=== PATIENT | female | born 1940 | race Caucasian/White ===

== ENCOUNTER → 2016-06-26 | Outpatient (CLI) | payer BC ==
[~2016-06-26] MED LIST: AMLO2.5T PO; ASPEC81 PO; CALCTAB5 PO; CLRUNK; CYAN100020 PO; GLC500 PO; IMDSR30 PO; MOME50SP5; MULT-845 PO; NORT25CA PO; NTRGSL/4 UT; PRLSR20 PO; SIMV-150 PO; TPRSR50 PO; VTMD PO
[2016-06-26 08:59] LABS: ESTIMATED AVERAGE GLUCOSE 131 mg/dl; HA1C FLAG Normal (Normal)
== END ==
LOC: C.LABFOXMH 07:45
PROVIDERS: ATTEND Internal Medicine
DX: E11.9 Type 2 diabetes mellitus without complications (principal)

== ENCOUNTER → 2016-09-25 | Outpatient (CLI) | payer BC ==
--- NOTE | 2016-09-25 12:45 | MAMMOGRAPHY REPORT ---
BILATERAL DIGITAL SCREENING MAMMOGRAM WITH CAD: 09/25/2016 CLINICAL HISTORY: Routine screening. Patient has no complaints. TECHNIQUE: Current study was also evaluated with a Computer Aided Detection (CAD) system. Bilateral CC and MLO views were obtained. COMPARISON: Comparison is made to exams dated: 09/24/2015 mammogram, 09/20/2014 mammogram, 09/18/2013 andrew mogram, 08/10/2012 mammogram, 07/24/2011 mammogram, and 07/21/2010 mammogram - [facility] er. BREAST COMPOSITION: The tissue of both breasts is almost entirely fatty. FINDINGS: No suspicious masses, calcifications, or areas of architectural distortion are noted in ei ther breast. There has been no significant interval change compared to prior exams. IMPRESSION: ACR BI-RADS CATEGORY 1: NEGATIVE There is no mammographic evidence of malignancy. A 1 year screening mammogram is recommended. The pa tient will receive written notification of the results. Approximately 10% of breast cancers are not detected with mammography. A negative mammographic report should not delay biopsy if a clinically suggestive mass is present. Sonia Boyce M.D. ah/:09/25/2016 10:22:15 Weight Tester: Farida Beltran RT(R)(M), [facility] letter sent: Normal 1/2 BI-RADS Code: ACR BI-RADS Category 1: Negative
== END ==
LOC: C.MAMM 09:21
PROVIDERS: ATTEND Internal Medicine
DX: Z12.31 Encounter for screening mammogram for malignant neoplasm of breast (principal)

== ENCOUNTER → 2016-10-28 | Outpatient (CLI) | payer BC ==
[2016-10-28 08:53] LABS: ALT/SGPT 21 U/L (12-78); AST/SGOT 18 U/L (15-37); BLOOD UREA NITROGEN 19 mg/dl (7-18); BUN/CREATININE RATIO 15.5 (10-20); CALCIUM 8.7 mg/dl (8.5-10.1); CARBON DIOXIDE 32 mmol/L (21-32); CHLORIDE 106 mmol/L (98-107); CHOLESTEROL 199 mg/dl (0-200); GLUCOSE 103 mg/dl (70-99); POTASSIUM 4.1 mmol/L (3.5-5.1); SODIUM 141 mmol/L (136-145); TRIGLYCERIDES 127 mg/dl (0-150); VERY LOW DENSITY LIPOPROT CALC 25 mg/dl
[2016-10-28 08:54] LABS: ALKALINE PHOSPHATASE 73 U/L (45-117); HDL CHOLESTEROL 66 mg/dl; LDL CHOLESTEROL CALCULATED 108 mg/dl
[2016-10-28 09:27] LABS: ESTIMATED AVERAGE GLUCOSE 137 mg/dl; HA1C FLAG Normal (Normal)
== END | disposition home or self-care (01) ==
LOC: C.LABFOXMH 08:22
PROVIDERS: ATTEND Internal Medicine
DX: E11.9 Type 2 diabetes mellitus without complications (principal)

== ENCOUNTER → 2016-12-14 | Outpatient (CLI) | payer BC ==
--- NOTE | 2016-12-14 09:59 | DIAGNOSTIC IMAGING REPORT ---
LUMBAR SPINE 5 VIEWS HISTORY: Low back PAIN COMPARISON: Lumbar spine 12/31/2011. FINDINGS: There is no fracture. No subluxation. Mild S-shaped scoliosis of the thoracolumbar spine, unchanged. Cholecystectomy. Mild facet osteoarthritis throughout the lumbar spine. There are few small endplate osteophytes within the lumbar spine. Minimal disc space narrowing at L3-L4, L4-5, and L5-S1. IMPRESSION: 1. No fracture or subluxation within the lumbar spine. 2. Minimal/mild degenerative changes as described above. 3. Mild S-shaped scoliosis. Electronically signed by: Diego Mcleod M.D. 12/14/2016 9:57 AM Dictated Date/Time: 12/14/2016 9:54 AM
== END | disposition home or self-care (01) ==
LOC: C.RADBC 09:13
PROVIDERS: ATTEND Internal Medicine
DX: M54.5 Low back pain (principal)

== ENCOUNTER → 2017-03-25 | Outpatient (CLI) | payer BC ==
[2017-03-25 08:58] LABS: HEMOGLOBIN A1C 6.6 % (4.5-5.6)
== END | disposition home or self-care (01) ==
LOC: C.LABFOXMH 08:06
PROVIDERS: ATTEND Internal Medicine
DX: E11.9 Type 2 diabetes mellitus without complications (principal)

== ENCOUNTER → 2017-04-02 | Outpatient (CLI) | payer BC ==
[2017-04-02 08:52] LABS: HEMATOCRIT 41.7 % (37-47); HEMOGLOBIN 13.4 g/dL (12.0-16.0); MEAN CELL VOLUME 84.9 fL (80-100); MEAN CORPUSCULAR HEMOGLOBIN 27.3 pg (25-34); MEAN CORPUSCULAR HGB CONC 32.1 g/dl (32-36); MEAN PLATELET VOLUME 10.4 fL (7.4-10.4); PLATELET COUNT 276 K/uL (130-400); RED CELL DISTRIBUTION WIDTH CV 13.8 % (11.5-14.5); RED CELL DISTRIBUTION WIDTH SD 42.7 fL (36.4-46.3); WHITE BLOOD COUNT 5.82 K/uL (4.8-10.8)
[2017-04-02 09:03] LABS: ALBUMIN 3.6 gm/dl (3.4-5.0); ALT/SGPT 23 U/L (12-78); AST/SGOT 18 U/L (15-37); BLOOD UREA NITROGEN 17 mg/dl (7-18); CALCIUM 9.4 mg/dl (8.5-10.1); CARBON DIOXIDE 29 mmol/L (21-32); CREATININE 1.16 mg/dl (0.60-1.20); GLUCOSE 113 mg/dl (70-99); POTASSIUM 4.1 mmol/L (3.5-5.1); SODIUM 140 mmol/L (136-145)
[2017-04-02 09:13] LABS: ALKALINE PHOSPHATASE 70 U/L (45-117)
== END | disposition home or self-care (01) ==
LOC: C.LABFOXMH 08:25
PROVIDERS: ATTEND Internal Medicine
DX: R41.2 Retrograde amnesia (principal)

== ENCOUNTER → 2017-04-08 | Outpatient (CLI) | payer BC ==
[~2017-04-08] MED LIST changes: +GADAVIST IV PRN
--- NOTE | 2017-04-08 15:06 | DIAGNOSTIC IMAGING REPORT ---
BRAIN COMBO CLINICAL HISTORY: MEMORY LOSS, MENGIONOMA,PARTIAL EXPRESSIVE APHAGIA COMPARISON STUDY: 02/23/2013 TECHNIQUE: Utilizing a 1.5 Calista magnet and dedicated coil, multiplanar, multiecho imaging of the brain was performed pre and postcontrast administration. IV administration of 8.5 mL of Gadavist contrast was uneventful. FINDINGS: Findings consistent with somewhat progressive atrophy and chronic small vessel change compared to the prior exam. Diffusion-weighted images are negative for an acute ischemic event. Multiple intracranial meningiomas are moderately increased in size. The posterior interhemispheric enhancing nodule has increased from 1.9 x 1 0.2-2 0.3 x 1.7 cm. An additional meningioma the base of the right temporal fossa has increased from 6 to 12 mm. A meningioma adjacent to the cavernous sinus appears to be similar at 12 mm. All meningioma showed minimal localized mass effect with only a trace amount of reactive edema. There is no midline shift. IMPRESSION: 1. Mildly progressive atrophy and chronic small vessel change throughout both cerebral hemispheres. 2. No evidence for an acute ischemic insult. 3. Multifocal intracranial meningiomas in general moderately increased in volume from the prior study. The above report was generated using voice recognition software. It may contain grammatical, syntax or spelling errors. Electronically signed by: Romel Patton M.D. 04/08/2017 3:05 PM Dictated Date/Time: 04/08/2017 3:00 PM
== END | disposition home or self-care (01) ==
LOC: C.MRI 13:25
PROVIDERS: ATTEND Internal Medicine
DX: R41.3 Other amnesia (principal); D32.9 Benign neoplasm of meninges, unspecified; F80.1 Expressive language disorder

== ENCOUNTER → 2017-05-27 | Outpatient (CLI) | payer BC ==
[~2017-05-27] MED LIST changes: -GADAVIST IV PRN
--- NOTE | 2017-05-27 09:16 | DIAGNOSTIC IMAGING REPORT ---
R HIP UNILATERAL 2 VIEWS CLINICAL HISTORY: PAIN COMPARISON: None. DISCUSSION: Minimal joint space narrowing of the right hip. No evidence for acetabular protrusion. No abnormal soft tissue calcifications. There is no evidence for soft tissue swelling. IMPRESSION: Minimal degenerative narrowing right hip joint space. Otherwise negative study. The above report was generated using voice recognition software. It may contain grammatical, syntax or spelling errors. Electronically signed by: Romel Patton M.D. 05/27/2017 9:14 AM Dictated Date/Time: 05/27/2017 9:13 AM
== END | disposition home or self-care (01) ==
LOC: C.RADBC 08:56
PROVIDERS: ATTEND Internal Medicine
DX: M25.551 Pain in right hip (principal)

== ENCOUNTER → 2017-06-22 | Outpatient (CLI) | payer BC ==
[2017-06-22 08:20] LABS: CREATININE 1.24 mg/dl (0.60-1.20)
== END | disposition home or self-care (01) ==
LOC: C.LABFOXMH 07:57
PROVIDERS: ATTEND Radiology Radiation Oncology
DX: D32.0 Benign neoplasm of cerebral meninges (principal)

== ENCOUNTER → 2017-10-01 | Outpatient (CLI) | payer BC ==
--- NOTE | 2017-10-04 07:44 | MAMMOGRAPHY REPORT ---
BILATERAL DIGITAL SCREENING MAMMOGRAM TOMOSYNTHESIS WITH CAD: 10/01/2017 CLINICAL HISTORY: Routine screening. Patient has no complaints. TECHNIQUE: The study was acquired using full field digital technology and interpreted from soft copy. Breast tomosynthesis in addition to standard 2D mammography was performed. Current study was also ev aluated with a Computer Aided Detection (CAD) system. COMPARISON: Comparison is made to exams dated: 09/25/2016 mammogram, 09/24/2015 mammogram, 09/20/2014 ma mmogram, 08/10/2012 mammogram, 07/24/2011 mammogram, and 07/18/2009 mammogram - [facility]. BREAST COMPOSITION: The tissue of both breasts is almost entirely fatty. FINDINGS: No suspicious masses, calcifications, or areas of architectural distortion are noted in either breast . There has been no significant interval change compared to prior exams. IMPRESSION: ACR BI-RADS CATEGORY 1: NEGATIVE There is no mammographic evidence of malignancy. A 1 year screening mammogram is recommended.( 019) The patient will receive written notification of the results. Some breast cancers are not detected with mammography. A negative mammographic report should not philomena y biopsy if a clinically suggestive mass is present. Sonia Boyce M.D. ah/:10/01/2017 12:41:20 Enchilada Maker: Arin Garcia [facility] letter sent: Normal 1/2 BI-RADS Code: ACR BI-RADS Category 1: Negative
== END | disposition home or self-care (01) ==
LOC: C.MAMM 09:28
PROVIDERS: ATTEND Internal Medicine
DX: Z12.31 Encounter for screening mammogram for malignant neoplasm of breast (principal)

== ENCOUNTER 2019-01-27 16:47 | Observation (INO) ==
[2019-01-27 17:28] LABS: Basophils # (auto) 0.01 K/uL (0-0.2); Basophils % (auto) 0.1 %; Eosinophils # (auto) 0.13 K/uL (0-0.5); Eosinophils % (auto) 1.9 %; Hemoglobin 13.2 g/dL (12.0-16.0); Immature Granulocytes # (auto) 0.01 K/uL (0.00-0.02); Immature Granulocytes % (auto) 0.1 %; Lymphocytes # (auto) 1.07 K/uL (1.2-3.4); Lymphocytes % (auto) 15.6 %; Mean Corpuscular Hemoglobin 27.6 pg (25-34); Mean Corpuscular Hgb Conc 33.8 g/dL (32-36); Mean Corpuscular Volume 81.4 fL (80-100); Mean Platelet Volume 9.8 fL (7.4-10.4); Monocytes # (auto) 0.73 K/uL (0.11-0.59); Monocytes % (auto) 10.6 %; Neutrophils # (auto) 4.93 K/uL (1.4-6.5); Neutrophils % (auto) 71.7 %; Platelet Count 244 K/uL (130-400); RDW Coefficient of Variation 14.3 % (11.5-14.5); RDW Standard Deviation 42.8 fL (36.4-46.3); Red Blood Count 4.79 M/uL (4.2-5.4); White Blood Count 6.88 K/uL (4.8-10.8)
[2019-01-27] MEDS ORDERED: NITROGLYCERIN 2% OINTMENT 30GM TUBE EXT STA (17:42)
[2019-01-27 17:44] LABS: Albumin Level 3.6 gm/dl (3.4-5.0); BUN Creatinine Ratio 12.9 (10-20); Calcium 8.8 mg/dl (8.5-10.1); Creatinine Clr Calc Pharmacy 35.5 ml/min; Est GFR (African American) 57.4; Est GFR (Non-African American) 49.6; Potassium 3.1 mmol/L (3.5-5.1)
--- NOTE | 2019-01-27 17:46 | XRay Report ---
XR chest 1V portable CLINICAL HISTORY: Atypical chest pain COMPARISON STUDY: 03/14/2018 FINDINGS: The cardiac and mediastinal contours are normal. There is no evidence of focal pulmonary co nsolidation. There is no evidence of failure. No pleural effusions are visualized.[ IMPRESSION: No active disease in the chest. Electronically signed by: Harjeet Duran M.D. 01/27/2019 5:45 PM
[2019-01-27 17:48] LABS: Albumin Globulin Ratio 1.1 (0.9-2); Bilirubin,Total 0.4 mg/dl (0.2-1); Globulin 3.3 gm/dl (2.5-4.0); Total Protein 6.9 gm/dl (6.4-8.2); Troponin I 0.037 ng/ml (0-0.045)
[2019-01-27] MEDS ORDERED: POTASSIUM CHLORIDE 20 MEQ TABCR PO STA ×2 (18:40→20:20)
--- NOTE | 2019-01-27 20:40 | Emergency Department Note ---
Entered by Pa Mcintyre acting as a scribe for ED Provider Note CHIEF COMPLAINT: Chest pain HISTORY OF PRESENT ILLNESS: The patient is a 78 year old female who presents to the ED with a chief complaint of central chest pain that began at 1330, approximately 3 hours prior to arrival. The patient describes her pain as a pressure and denies radiation of this pain. She states that when the pain began it was rated at a 10/10, but states that it is currently 3/10. The patient reports feeling lightheaded at this time, but denies nausea, vomiting, shortness of breath, and sweating. The patient states that this is similar to a prior episode. She states that she took Nitro prior to EMS arrival, and states that this relieved her symptoms. The patient states that she had a colonoscopy just prior to her chest pain beginning. Pt denies LOC, headache, fevers, chills, diaphoresis, visual changes, neck pain, breathing difficulties, nausea, vomiting, abdominal pain, back pain, melena, hematochezia, urinary symptoms, numbness, weakness, lymphadenopathy, rash, or other complaints. REVIEW OF SYSTEMS: See HPI for pertinent positives and negatives. A total of ten systems were reviewed and were otherwise negative. PMHx/PSHx: CAD Diabetes HTN GERD HLD SOCIAL HISTORY: Patient lives at home. PHYSICAL EXAM: GENERAL: Awake, alert, well-appearing, in no distress HENT: Normocephalic, atraumatic. Flushed face. Oropharynx unremarkable. EYES: Normal conjunctiva. Sclera non-icteric. NECK: Inspection normal. Non-tender. Supple. No nuchal rigidity. FROM. No masses. RESPIRATORY: Clear to auscultation. No wheezes. No rales. Normal respiratory effort. CARDIAC: Tachycardic rate. Normal rhythm. No murmurs. No rubs. Extremities warm and well perfused. Pulses equal. No JVD. GI: Soft, non-distended. No tenderness to palpation. No rebound or guarding. No masses. RECTAL: Deferred. MUSCULOSKELETAL: Atraumatic. Chest examination reveals no tenderness. The back is symmetrical on inspection without obvious abnormality. There is no CVA tenderness to palpation. No joint edema. LOWER EXTREMITIES: Calves are equal size bilaterally and non-tender. No edema. No discoloration. NEURO: Normal sensorium. No sensory or motor deficits noted. SKIN: No rash or jaundice noted. EMERGENCY DEPARTMENT COURSE: 1650: The patient was evaluated in room B7, and a complete history and physical examination were performed. 1912: I checked on and updated the patient. I expressed the need for further evaluation because of her cardiac history and chest pain today that was relieved by Nitro. The patient is in agreement with this plan. 1921: [facility] Hospitalist has been paged for further evaluation of the patient. MEDICAL DECISION MAKING: Triage Nursing notes reviewed and agree them. Additional history obtained from EMS. The patient's history was concerning for chest pain. Differential diagnosis: Etiologies such as cardiac ischemia, aortic dissection, pulmonary embolism, pneumonia, pneumothorax, musculoskeletal, infections, pericarditis, myocarditis, esophageal rupture, gastrointestinal, as well as others were entertained. Physical examination: As above. ER treatment provided: Nitropaste Monitoring Patient received aspirin prehospital. On reassessment the patient felt better. Diagnostic interpretation by me: The electrocardiogram was negative for pathologic change. The labs revealed an unremarkable CBC and chemistry panel except for slight hypokalemia. The patient does have a normal troponin. Imaging studies: Chest x-ray negative for acute process. Consultation: A consultation was placed with the hospitalist. The case was discussed and diagnostics were reviewed. The patient was evaluated in the ER for further treatment. IMPRESSION: Substernal chest pain History of coronary artery disease PLAN: Further evaluated by hospitalist Impression & Plan Substernal chest pain, History of coronary artery disease Past Med/Surg History Medical History Anxiety CAD (coronary artery disease) Degenerative disc disease Diabetes mellitus, type 2 DIET CONTROLLED Environmental allergies Esophageal spasm GERD (gastroesophageal reflux disease) History of depression Hyperlipidemia Hypertension (Chronic) Osteoarthritis Peripheral neuropathy LEFT FOOT Urinary frequency Surgical History H/O foot surgery LEFT History of cardiac cath 2003 (NO STENTS) History of cataract surgery RT/LEFT History of cholecystectomy History of colonoscopy History of esophagogastroduodenoscopy (EGD) History of nasal septoplasty History of tonsillectomy and adenoidectomy History of tooth extraction Family History Mother Atrial fibrillation Colon cancer Other Heart disease Stroke Social History Preferred Language: Armenian Communication Ability: Effective Etl [employer] Architect Required: No Beliefs That Will Affect Care: None marital status: single Current Living Situation: Alone Current Living Situation Comment: [facility] current occupational status: retired Feels Safe at Home: Yes Smoking Status: Former smoker Tobacco Type: cigarettes ; Second Hand Exposure: No ; Hx Alcohol Use: Yes Alcohol type: beer, wine and hard liquor Hx Substance Use: No Results & Data Vital Signs Vital Signs - 24 hr 01/27/19 16:47 01/27/19 17:35 01/27/19 17:42 Temperature 36.6 C Temperature Source Oral Pulse Rate 108 H Pulse Rate [Apical] 95 H Pulse Rate from SpO2 Sensor Pulse Rhythm Regular Pulse Strength Normal Respiratory Rate 16 17 Respiratory Effort / Characteristics Non-Labored Spontaneous Respiratory Depth Normal Respiratory Pattern Regular Blood Pressure 157/77 H Blood Pressure [Right Arm] 184/94 H Blood Pressure Mean 103 Blood Pressure Mean [Right Arm] 124 Blood Pressure Position Sitting Pulse Oximetry 100 100 100 Oxygen Delivery Method Room Air Room Air Room Air Sepsis Recent Fever Within 48 Hours No Sepsis New/Unexplained Change in Mental Status No Sepsis Action Taken by Nursing No Action Required 01/27/19 18:18 01/27/19 18:30 01/27/19 19:00 Temperature Temperature Source Pulse Rate 97 H 97 H Pulse Rate [Apical] 100 H Pulse Rate from SpO2 Sensor 98 H 99 H Pulse Rhythm Pulse Strength Respiratory Rate 14 19 16 Respiratory Effort / Characteristics Respiratory Depth Respiratory Pattern Blood Pressure 180/97 H 154/90 H Blood Pressure [Right Arm] 170/82 H Blood Pressure Mean 124 117 Blood Pressure Mean [Right Arm] 111 Blood Pressure Position Pulse Oximetry 98 99 98 Oxygen Delivery Method Room Air Room Air Room Air Sepsis Recent Fever Within 48 Hours Sepsis New/Unexplained Change in Mental Status Sepsis Action Taken by Nursing 01/27/19 19:29 Temperature Temperature Source Pulse Rate Pulse Rate [Apical] 104 H Pulse Rate from SpO2 Sensor Pulse Rhythm Pulse Strength Respiratory Rate 20 Respiratory Effort / Characteristics Respiratory Depth Respiratory Pattern Blood Pressure Blood Pressure [Right Arm] 160/83 H Blood Pressure Mean Blood Pressure Mean [Right Arm] 108 Blood Pressure Position Pulse Oximetry 97 Oxygen Delivery Method Sepsis Recent Fever Within 48 Hours Sepsis New/Unexplained Change in Mental Status Sepsis Action Taken by [facility] Medications Current Medication List: was personally reviewed by me Laboratory Data Attestation: I reviewed the patient's lab results. Result diagrams: 01/27/19 17:00 01/27/19 17:00 Lab Results 01/27/19 01/27/19 Range/Units 17:00 17:00 WBC 6.88 (4.8-10.8) K/uL RBC 4.79 (4.2-5.4) M/uL Hgb 13.2 (12.0-16.0) g/dL Hct 39.0 (37-47) % MCV 81.4 (80-100) fL MCH 27.6 (25-34) pg MCHC 33.8 (32-36) g/dL RDW Std Deviation 42.8 (36.4-46.3) fL RDW Coeff of Abrahan 14.3 (11.5-14.5) % Plt Count 244 (130-400) K/uL MPV 9.8 (7.4-10.4) fL Immature Gran % (Auto) 0.1 % Neut % (Auto) 71.7 % Lymph % (Auto) 15.6 % [place] % (Auto) 10.6 % Eos % (Auto) 1.9 % Baso % (Auto) 0.1 % Immature Gran # (Auto) 0.01 (0.00-0.02) K/uL Neut # (Auto) 4.93 (1.4-6.5) K/uL Lymph # (Auto) 1.07 L (1.2-3.4) K/uL [place] # (Auto) 0.73 H (0.11-0.59) K/uL Eos # (Auto) 0.13 (0-0.5) K/uL Baso # (Auto) 0.01 (0-0.2) K/uL Sodium 138 (136-145) mmol/L Potassium 3.1 L (3.5-5.1) mmol/L Chloride 105 (98-107) mmol/L Carbon Dioxide 25 (21-32) mmol/L Anion Gap 8.0 (3-11) BUN 14 (7-18) mg/dl Creatinine 1.06 (0.6-1.2) mg/dl Est Cr Clr Drug Dosing 35.5 ml/min Est GFR ( Amer) 57.4 Est GFR (Non-Af Amer) 49.6 BUN/Creatinine Ratio 12.9 (10-20) Glucose 145 H (70-99) mg/dl Calcium 8.8 (8.5-10.1) mg/dl Total Bilirubin 0.4 (0.2-1) mg/dl AST 17 (15-37) U/L ALT 21 (12-78) U/L Alkaline Phosphatase 74 (45-117) U/L Troponin I 0.037 (0-0.045) ng/ml Total Protein 6.9 (6.4-8.2) gm/dl Albumin 3.6 (3.4-5.0) gm/dl Globulin 3.3 (2.5-4.0) gm/dl Albumin/Globulin Ratio 1.1 (0.9-2) Lipase 120 (73-393) U/L Administered Medications Discontinued Medications Nitroglycerin (Nitro-Bid 2%) 0.5 inch EXT NOW STA Stop: 01/27/19 17:43 Last Admin: 01/27/19 18:15 Dose: 0.5 inch Documented by: [id number] Potassium Chloride (Klor-Con M20) 20 meq PO NOW STA Stop: 01/27/19 18:41 Last Admin: 01/27/19 19:28 Dose: 20 meq Documented by: [id number] Potassium Chloride (Klor-Con M20) 40 meq PO NOW STA Stop: 01/27/19 20:21 Last Admin: 01/27/19 20:30 Dose: 40 meq Documented by: [id number] Imaging Data Radiologist's Impression: Radiology results as stated below per my review and the radiologist's interpretation: XR chest 1V portable CLINICAL HISTORY: Atypical chest pain COMPARISON STUDY: 03/14/2018 FINDINGS: The cardiac and mediastinal contours are normal. There is no evidence of focal pulmonary consolidation. There is no evidence of failure. No pleural effusions are visualized. IMPRESSION: No active disease in the chest. Electronically signed by: Harjeet Duran M.D. 01/27/2019 5:45 PM ECG Data Attestation: I personally reviewed and interpreted this ECG as follows: Indication: + chest pain Rate (beats per minute): 109 Rhythm: sinus tachycardia ECG [place]: + Left axis deviation ECG ST segments: + ST depression (subtle lateral); no ST elevation ECG Findings: + Other (LVH; nonspecific ST segments); no PACs and no PVCs Comparison ECG Date: from (03/14/18) Change: the following changes noted (subtle lateral ST depressions are new) Additional Comments: pre-hospital ECG: Sinus tachycardia with a rate of 112. LVH. Left axis deviation. Subtle lateral ST depression. Normal QRS. Blood Pressure Blood Pressure Findings: Elevated blood pressure Blood Pressure Disposition: further management by hospitalist Discharge Plan Visit Data Chief Complaint: Chest Pain Stated Complaint: CHEST TIGHTNESS ED Provider: Ned Johnson Discharge Problem: Substernal chest pain, History of coronary artery disease Patient Disposition: Being Evaluated by Hospitalist Forms Stand Alone Forms: Call Back Authorization, [facility] Prescriptions Prescriptions: No Action nitroglycerin [Nitrostat] 0.4 mg tablet, sublingual 0.4 mg Sublingual DIRECTED PRN (Reason: Chest Pain) Qty: 25 RF: 3 nortriptyline 25 mg capsule 25 mg PO QPM RF: 0 simvastatin 10 mg tablet 10 mg PO DAILY RF: 0 isosorbide mononitrate 30 mg tablet extended release 24 hr 30 mg PO DAILY RF: 0 metoprolol succinate [Toprol XL] 50 mg tablet extended release 24 hr 75 mg PO QAM RF: 0 tolterodine 2 mg tablet 2 mg PO BID Qty: 180 RF: 3 aspirin 81 mg Tablet,Delayed Release (Dr/Ec) 81 mg PO DAILY RF: 0 fluticasone propionate [Flonase Allergy Relief] 50 mcg/actuation [place],Suspension 2 spray INTRANASAL DAILY RF: 0 cholecalciferol (vitamin D3) [Vitamin D3] 2,000 unit Tablet 2,000 unit PO DAILY RF: 0 Zyrtec 10 mg Capsule 10 mg PO DAILY RF: 0 cyanocobalamin (vitamin B-12) 1,000 mcg Tablet 1,000 mcg PO DAILY RF: 0 pantoprazole 40 mg Tablet,Delayed Release (Dr/Ec) 40 mg PO BID RF: 0 montelukast 10 mg Tablet 10 mg PO DAILY RF: 0 candesartan 16 mg tablet 16 mg PO DAILY RF: 0 Referrals Referrals: Smooth Doan MD [Primary Care Provider] - The scribe's documentation has been prepared under my direction and personally reviewed by me in its entirety. I confirm that the note above accurately reflects all work, treatment, procedures, and medical decision making performed by me.
--- NOTE | 2019-01-27 21:35 | History & Physical Report ---
Date of Service January 27, 2019 Assessment & Plan (1) Substernal chest pain: 78-year-old female with history of type vessel occlusive coronary artery disease, arterial hypertension, DM 2, lipidemia, GERD anxiety, depression presents status post chest pain this afternoon after her colonoscopy Chest pain Concerning for possible MA versus unstable angina versus arrhythmia EK sinus tach QTC [address] depression lateral leads no ST elevation Troponin 0.037 Cardiac cath in 2010: Multivessel occlusive coronary artery disease, arterial hypertension Trend troponin Repeat EKG ordered Echo ordered Monitor on telemetry Cardiology consulted History of hypertension/hyperlipidemia/coronary artery disease Continue home aspirin, candesartan, isosorbide mononitrate, metoprolol and simvastatin History of diabetes Managed dietary A1c 6.9 on 11/29/2018 Sliding scale insulin ordered GERD Continue home pantoprazole Urinary frequency Tinea home tolterodine Allergies Continue home Zyrtec and montelukast FEN/GI: Heart healthy diet, LR at 100+ KCl 20 mEq Code: Full Disposition: MedSurg with telemetry DVT prophylaxis: Heparin subcu (2) History of coronary artery disease: (3) Diabetes: (4) Hypertension: (5) HLD (hyperlipidemia): (6) GERD (gastroesophageal reflux disease): History of Present Illness Chief Complaint: Chest pain Primary Care Provider: Smooth Doan MD 78-year-old female with history of type vessel occlusive coronary artery disease, arterial hypertension, DM 2, lipidemia, GERD anxiety, depression presents status post chest pain this afternoon after her colonoscopy. Reports she put on her pajamas and wanted to take a nap when the chest tightness started. She also felt some flutters. At the time her blood pressure was elevated and she was also tachycardic. Associated with mild shortness of breath and lightheadedness after the episode. Denies any diaphoresis, nausea, vo miting. Chest pain went away after she received Nitropaste. Received 3 nitros in route and aspirin 324 mg x 1. Denies any fever, chills, abdominal pain, constipation, dysuria, hematuria. Patient reports taking 2 nitros before going up the hill at her living facility, [facility] however after she received PT she feels stronger and can go up and down the hill without needing to take any nitro. History of smoking for 2 to 3 years less than half a pack per day quit 50 years ago. Drinks alcohol about once a month 1 ounce of liquor or couple glasses of wine Allergies Allergy/AdvReac Type Severity Reaction Status Date / Time Sulfa (Sulfonamide Allergy Intermediate RASH, RED Verified 01/27/19 20:12 Antibiotics) ALL OVER BODY lisinopril Allergy Mild Cough Verified 01/27/19 20:12 Home Medications Home Medications Medication Instructions Recorded Confirmed Type Zyrtec 10 mg PO DAILY 03/14/18 01/27/19 History aspirin 81 mg PO DAILY 03/14/18 01/27/19 History cholecalciferol (vitamin D3) 2,000 unit PO DAILY 03/14/18 01/27/19 History [Vitamin D3] fluticasone propionate [Flonase 2 spray INTRANASAL DAILY 03/14/18 01/27/19 History Allergy Relief] isosorbide mononitrate 30 mg 30 mg PO DAILY 09/26/18 01/27/19 History tablet,extended release 24 hr metoprolol succinate 50 mg 75 mg PO QAM 09/26/18 01/27/19 History tablet,extended release 24 hr nortriptyline 25 mg capsule 25 mg PO QPM 09/26/18 01/27/19 History simvastatin 10 mg tablet 10 mg PO DAILY 09/26/18 01/27/19 History tolterodine 2 mg tablet 2 mg PO BID #180 tab 10/13/18 01/27/19 Rx nitroglycerin 0.4 mg sublingual 0.4 mg SUBLINGUAL DIRECTED PRN 11/23/18 01/27/19 Rx tablet #25 tab cyanocobalamin (vitamin B-12) 1,000 mcg PO DAILY 01/18/19 01/27/19 History montelukast 10 mg PO DAILY 01/18/19 01/27/19 History pantoprazole 40 mg PO BID 01/18/19 01/27/19 History candesartan 16 mg PO DAILY 01/27/19 01/27/19 History Past Med/Surg History Medical History Anxiety CAD (coronary artery disease) Degenerative disc disease Diabetes mellitus, type 2 DIET CONTROLLED Environmental allergies Esophageal spasm GERD (gastroesophageal reflux disease) History of depression Hyperlipidemia Hypertension (Chronic) Osteoarthritis Peripheral neuropathy LEFT FOOT Urinary frequency Surgical History H/O foot surgery LEFT History of cardiac cath 2003 (NO STENTS) History of cataract surgery RT/LEFT History of cholecystectomy History of colonoscopy History of esophagogastroduodenoscopy (EGD) History of nasal septoplasty History of tonsillectomy and adenoidectomy History of tooth extraction Family History Mother Atrial fibrillation Colon cancer Other Heart disease Stroke Social History Preferred Language: Arabic Communication Ability: Effective Coarse Wire Drawer Required: No Beliefs That Will Affect Care: None marital status: single Current Living Situation: Personal Care Facility Current Living Situation Comment: [facility] current occupational status: retired Other Information That Helps Us Care for You: No Feels Safe at Home: Yes Safety Concerns: Feels Safe At This Time Smoking Status: Former smoker Tobacco Type: cigarettes ; Second Hand Exposure: No ; Hx Alcohol Use: Yes Alcohol type: wine and hard liquor Hx Substance Use: No Review of Systems Review of Systems: As per HPI Physical Exam Physical Exam: General: In NAD HEENT: dry oral mucosa Neuro: A&O x 4 Pulm: CTAB equal breath sounds bilaterally CV: RRR, no m/r/g, cap refill 2 secs Abdomen:+BS, no TTP in all quadrants, non-distended LE: no LE edema, no calf TTP Results & Data Vital Signs (Past 12 Hours) Vital Signs Temp Pulse Pulse Resp BP BP Pulse Ox 01/27/19 21:20 105 H 18 139/79 97 01/27/19 19:29 104 H 20 160/83 H 97 01/27/19 19:00 97 H 16 154/90 H 98 01/27/19 18:30 97 H 19 180/97 H 99 01/27/19 18:18 100 H 14 170/82 H 98 01/27/19 17:42 95 H 17 184/94 H 100 01/27/19 17:35 100 01/27/19 16:47 36.6 C 108 H 16 157/77 H 100 Laboratory Results Abnormal lab results 01/27/19 01/27/19 Range/Units 17:00 17:00 Lymph # (Auto) 1.07 L (1.2-3.4) K/uL Tyrrell # (Auto) 0.73 H (0.11-0.59) K/uL Potassium 3.1 L (3.5-5.1) mmol/L Glucose 145 H (70-99) mg/dl Diagnostic Findings XR chest 1V portable CLINICAL HISTORY: Atypical chest pain COMPARISON STUDY: 03/14/2018 FINDINGS: The cardiac and mediastinal contours are normal. There is no evidence of focal pulmonary consolidation. There is no evidence of failure. No pleural effusions are visualized.[ IMPRESSION: No active disease in the chest. Code Status & VTE Plan VTE Prophylaxis Plan VTE Prophylaxis will be ordered: Yes Supervising Physician Co-Signing Physician Notes Attending addendum: I have physically seen this patient, have supervised the medical residents activities, and agree with the H&P unless as otherwise noted. Assessment and Plan: Substernal chest pain/CAD/hypertension/hyperlipidemia- The patient will be admitted to telemetry for serial cardiac enzymes, serial EKG's, cardiac rhythm monitoring and a 2-D echocardiogram with Dopplers. Continue aspirin, candesartan, isosorbide mononitrate, metoprolol and simvastatin. Check a fasting lipid panel and hemoglobin A1c. Consult cardiology. Remainder of orders and notations as noted. Resident Activity Tracking Resident Involvement: Resident Care Provided Care Provided: Adult [facility]
[2019-01-27] MEDS ORDERED: ONDANSETRON INJ 2 MG/ML 2 ML VIAL IV PRN (23:04)
[2019-01-27] MEDS ORDERED: NITROGLYCERIN SL 0.4 MG/TAB TAB SL PRN (23:04)
[2019-01-27] MEDS ORDERED: ACETAMINOPHEN 325 MG TAB PO PRN (23:04)
[2019-01-27] MEDS: NSS + 20MEQ KCL 20 MEQ/1,000 ML BAG IV SCH (23:34)
[2019-01-27] MEDS: PANTOprazole 40 MG TAB PO SCH (23:41)
[2019-01-27] MEDS: TOLTERODINE TARTRATE 2 MG TAB PO SCH (23:41)
[2019-01-27] MEDS ORDERED: GLUCOSE 10 TABS/TUBE PO PRN (23:45)
[2019-01-27] MEDS ORDERED: DEXTROSE 50% 50 ML SYRINGE IV PRN (23:45)
[2019-01-27] MEDS ORDERED: GLUCOSE 40% GEL 15 GM TUBE PO PRN (23:45)
[2019-01-27] MEDS ORDERED: CARBOHYDRATES FOR HYPOGLYCEMIA PO PRN (23:45)
[2019-01-27] MEDS ORDERED: GLUCAGON FOR INJ 1 MG VIAL SQ PRN (23:45)
[2019-01-28] MEDS ORDERED: HEPARIN SODIUM/DEXTROSE 25,000 UNITS/500 ML BAG IV SCH (01:30)
[2019-01-28] MEDS ORDERED: METOPROLOL TARTRATE 1 MG/ML VIAL IV STA (01:30)
[2019-01-28] MEDS ORDERED: Heparin IV Standard *NO* Bolus IV ONE (01:30)
[2019-01-28] MEDS: PANTOprazole 40 MG TAB PO SCH ×2 (07:55→21:28)
[2019-01-28] MEDS: SIMVASTATIN 10 MG TAB PO SCH (07:56)
[2019-01-28] MEDS: CETIRIZINE HCL 10 MG TABLET PO SCH (07:56)
[2019-01-28] MEDS: FLUTICASONE PROPIONATE NA SPR 16 GM BTL SCH (07:56)
[2019-01-28] MEDS: TOLTERODINE TARTRATE 2 MG TAB PO SCH ×2 (07:56→21:29)
[2019-01-28] MEDS: MONTELUKAST SODIUM 10 MG TABLET PO SCH (07:56)
[2019-01-28] MEDS: ASPIRIN 81 MG ECTAB PO SCH (07:57)
[2019-01-28] MEDS ORDERED: PERFLUTREN LIPID MICROSPHERE (DEFINITY) IV ONE (08:35)
[2019-01-28] MEDS ORDERED: METOPROLOL SUCC 25MG EXT REL TAB PO SCH (09:00)
[2019-01-28] MEDS ORDERED: HEPARIN SOD 5,000 UNIT/0.5 ML VIAL SQ SCH (09:00)
[2019-01-28] MEDS: ISOSORBIDE MONO EXTENDED REL 30 MG TABCR PO SCH (09:02)
[2019-01-28] MEDS: NSS + 20MEQ KCL 20 MEQ/1,000 ML BAG IV SCH ×2 (09:03→19:16)
[2019-01-28] MEDS: INSULIN ASPART 100 UNITS/ML 3 ML PEN SC SCH ×4 (09:05→21:28)
[2019-01-28 09:23] LABS: Partial Thromboplastin Ratio 2.3
[2019-01-28 09:35] LABS: Partial Thromboplastin Time 62.2 Seconds (21.0-31.0)
--- NOTE | 2019-01-28 12:19 | Hospitalist Progress Note ---
Date of Service January 28, 2019 Assessment & Plan (1) Myocardial injury: Very mild troponin bump from 0.04 to 1.1, then down. Had some possible "flutter" sensation in the chest, but otherwise asymptomatic. - Presently on heparin gtt, though cardiology may want to dc this. - Continue home ASA, beta-adriane, and statin (2) History of coronary artery disease: Cath in 2009 with 60-70% lesions in diagonals, LCx, and RCA. - As above (3) Hypertension: BP presently 165/95. - Continue home meds: Imdur, beta-adriane - Not on home candesartan due to not having it; switch to losartan if BP remains elevated and if she'll be in the hospital more than today (4) Diabetes: A1c was 6.9% in 11/2018. Does not appear she is on home DM meds. - Sliding scale insulin (5) GERD (gastroesophageal reflux disease): - Continue home meds (6) DVT prophylaxis: On heparin gtt for possible ACS Subjective No present chest pain or "flutter" that brought her in. She is doing well overall. Reports no fevers/chills, chest pain, shortness of breath, abdominal pain, nausea, or vomiting. Physical Exam Constitutional: WD/WN, vitals as above Eyes: EOM intact bilaterally; no conjunctival abnormality ENMT: external ear and nose normal, oropharynx normal Neck: trachea midline, no thyromegaly normal visual inspection Respiratory: normal respiratory effort, lungs clear to auscultation no respiratory distress Cardiovascular: RRR, no murmur, no edema Gastrointestinal (Abdomen): Inspection/Auscultation: abdomen normal to inspection; abdomen not distended Musculoskeletal: no cyanosis or clubbing, extremities motor strength 5/5 Skin: no rashes, warm and dry Neurologic: moves all extremities and awake Psychiatric: Orientation: alert, oriented to person and cooperative Results & Data Vital Signs (Past 12 Hours) Vital Signs Temp Pulse Pulse Resp BP BP Pulse Ox 01/28/19 11:44 37.0 C 89 18 165/95 H 93 01/28/19 09:25 87 01/28/19 07:41 36.9 C 89 18 167/90 H 95 01/28/19 04:11 36.7 C 83 18 165/89 H 95 01/28/19 02:45 77 162/85 H 01/28/19 02:21 106 H 180/99 H 01/28/19 01:30 186/98 H PG Care Time/CCT Total # of Minutes Spent Total Time Spent with Patient: Total time spent is greater than 50% in coordination of care (as documented) at patient's floor/unit and/or counseling patient:
[2019-01-28] MEDS ORDERED: METOPROLOL SUCC 25MG EXT REL TAB PO STA (17:46)
--- NOTE | 2019-01-28 18:09 | Cardiology Consultation ---
Date of Consultation January 28, 2019 Assessment & Plan (1) Angina pectoris: (2) CAD (coronary artery disease): (3) Elevated troponin: (4) Hypertension: (5) HLD (hyperlipidemia): (6) Palpitations: ASSESSMENT/PLAN: 1. Angina: Symptoms are concerning for angina especially given her history and the fact that she does experience angina chronically which has been managed medically for several years. She has low level troponin elevation, peaking at 0.148. No wall motion abnormalities on echo. We discussed treatment options such as coronary angiography and medical therapy. She is willing to consider coronary angiography but would first like to be discharged and discuss with her PCP and primary cargo operations agent. She has not had any further angina and she was significantly hypertensive on admission. Will adjust medical therapy as per wishes as there is no urgent indication for angiography. Recommend increasing metoprolol succinate to 150 mg daily. According to records she did not tolerate higher doses of isosorbide mononitrate but she does not recall this. If still remains hypertensive, recommend calcium channel adriane. 2. CAD: She had multivessel CAD in 2009. Symptoms concerning for angina. Plan as above 81 mg daily, beta-adriane, and statin therapy. Blood pressure management born. 3. Elevated troponin: She did not rule in for NH, but was likely ischemic. Tachyarrhythmia may have precipitated her ischemia with underlying CAD as she does recall having fluttering sensation is or heart was racing. Double beta- adriane as above. 4. Palpitations: Recommend continuation of telemetry. Thirty day event monitor on discharge. Doubling beta-adriane as above. If she did have a tachyarrhythmia, it may have precipitated her ischemic event given her underlying CAD. 5. Hypertension: Systolic blood pressure was greater than 200 on presentation. Severe hypertension may also be precipitating her angina given underlying CAD. Recommend doubling beta-adriane as above. Recommend resuming PITER-inhibitor to optimize blood pressure control. Can also consider calcium channel adriane for antianginal relief if necessary. 6. Dyslipidemia: Consider high-intensity statin therapy. 7. Disposition: Patient care discussed with Dr. Irvin of the primary [facility]. Please call with other questions or concerns. Highly complex medical issues. Thank you for allowing me to participate in the care of your patient. Please call for any other questions or concerns. Sincerely, Eros Vargas M.D. History of Present Illness Reason for Consultation: Chest pain with history of multivessel CAD Requesting Physician: Dr. Cisneros Attending Physician: Tushar Irvin MD History of Present Illness Ms. Buck is a very pleasant 78-year-old female with history significant for CAD, hypertension, type 2 diabetes, and dyslipidemia. Her primary cargo operations agent is Dr. Hammonds. She has had the following studies/procedures: 1. Cardiac catheterization 2009: Small to medium caliber LAD. Mid LAD 60%. Proximal circumflex 60%. Dominant RCA with fierro's crook with serial 70- 80% stenotic lesions. EF 70%. No MR. 2. Stress echo 07/19/2013: Negative stress echo and ECG for ischemia 84% MPHR. Small inferobasal infarct without evidence of ischemia per report. 6 minutes 31 seconds Gene protocol. She has a history of chronic and stable angina with exertion. In 2009 for her cardiac catheterization, she presented with rest pain according to documents. Medical therapy was recommended at that time. She was last seen by Dr. Hammonds in July of 2018. She had previously been seen in the ER prior to his appointment with severe hypertension. She presented yesterday to the emergency department with chest pain. She recalls that she did not take any of her antihypertensive medications on 01/25/2019, as she underwent a colonoscopy. She did not feel well . She recalls experiencing chest pressure and tightness across her entire chest while laying in bed. She states that actually started with a fluttering sensation, and then the chest discomfort. It felt like her prior angina. She took nitroglycerin x2 at [facility] which helped improve her symptoms but symptoms did remain until she came to the emergency department when it finally resolved. She occasionally experiences this with exertion, while walking [place] for which she sometimes takes nitroglycerin and this has been a chronic but stable pattern. Typically however there is no fluttering sensation. For the past 1 month she has had intermittent fluttering sensations which she cannot further describe. She is currently asymptomatic in this regard. She denies shortness of breath, syncope, near-syncope, edema, or bleeding such as melena, hematochezia, or hematuria. She does not exercise as part of a routine but she states that she walks her dog often. Review of systems: As above. Review of systems otherwise negative/unremarkable. Family history: Brother with ICD and with stroke. She states that there is a strong family history of colon cancer. Social history: She quit smoking years ago. Occasional alcohol. No drugs. She has never been . No children. Her only sibling that remains is a sister who lives in [place]. She is unaccompanied. Allergies Allergy/AdvReac Type Severity Reaction Status Date / Time Sulfa (Sulfonamide Allergy Intermediate RASH, RED Verified 01/27/19 20:12 Antibiotics) ALL OVER BODY lisinopril Allergy Mild Cough Verified 01/27/19 20:12 Home Medications Home Medications Medication Instructions Recorded Confirmed Type Zyrtec 10 mg PO DAILY 03/14/18 01/27/19 History aspirin 81 mg PO DAILY 03/14/18 01/27/19 History cholecalciferol (vitamin D3) 2,000 unit PO DAILY 03/14/18 01/27/19 History [Vitamin D3] fluticasone propionate [Flonase 2 spray INTRANASAL DAILY 03/14/18 01/27/19 History Allergy Relief] isosorbide mononitrate 30 mg 30 mg PO DAILY 09/26/18 01/27/19 History tablet,extended release 24 hr metoprolol succinate 50 mg 75 mg PO QAM 09/26/18 01/27/19 History tablet,extended release 24 hr nortriptyline 25 mg capsule 25 mg PO QPM 09/26/18 01/27/19 History simvastatin 10 mg tablet 10 mg PO DAILY 09/26/18 01/27/19 History tolterodine 2 mg tablet 2 mg PO BID #180 tab 10/13/18 01/27/19 Rx nitroglycerin 0.4 mg sublingual 0.4 mg SUBLINGUAL DIRECTED PRN 11/23/18 01/27/19 Rx tablet #25 tab cyanocobalamin (vitamin B-12) 1,000 mcg PO DAILY 01/18/19 01/27/19 History montelukast 10 mg PO DAILY 01/18/19 01/27/19 History pantoprazole 40 mg PO BID 01/18/19 01/27/19 History candesartan 16 mg PO DAILY 01/27/19 01/27/19 History Patient History Medical History Anxiety CAD (coronary artery disease) Degenerative disc disease Diabetes mellitus, type 2 DIET CONTROLLED Environmental allergies Esophageal spasm GERD (gastroesophageal reflux disease) History of depression Hyperlipidemia Hypertension (Chronic) Osteoarthritis Peripheral neuropathy LEFT FOOT Urinary frequency Surgical History H/O foot surgery LEFT History of cardiac cath 2003 (NO STENTS) History of cataract surgery RT/LEFT History of cholecystectomy History of colonoscopy History of esophagogastroduodenoscopy (EGD) History of nasal septoplasty History of tonsillectomy and adenoidectomy History of tooth extraction Family History Mother Atrial fibrillation Colon cancer Other Heart disease Stroke Social History Preferred Language: Samoan Communication Ability: Effective Qa Reviewer Required: No Beliefs That Will Affect Care: None marital status: single Current Living Situation: Personal Care Facility Current Living Situation Comment: [facility] current occupational status: retired Other Information That Helps Us Care for You: No Feels Safe at Home: Yes Safety Concerns: Feels Safe At This Time Smoking Status: Former smoker Tobacco Type: cigarettes ; Second Hand Exposure: No ; Hx Alcohol Use: Yes Alcohol type: wine and hard liquor Hx Substance Use: No Physical Exam Physical Exam: Gen.: No acute distress. Alert and oriented. HEENT: Anicteric sclera. Neck: No JVD. No bruits. Normal carotid upstrokes bilaterally. Cardiac: PMI was nonpalpable. No ventricular heave. Regular. Normal S1-S2. No murmurs, rubs, or gallops. Pulmonary: Clear to auscultation bilaterally without wheezes, rales, or rhonchi. Abdomen: Soft, nontender, nondistended, with normoactive bowel sounds. No bruits noted. Extremities: 2+ radial pulses bilaterally. 2+ posterior tibialis pulses bilaterally. No edema or cyanosis. No palpable cords. Psychiatric: Affect appears appropriate. Chest: Nontender to palpation. Results & Data Vital Signs (Past 12 Hours) Vital Signs Temp Pulse Pulse Resp BP Pulse Ox 01/28/19 16:00 37.3 C 81 20 164/76 H 97 01/28/19 11:44 37.0 C 89 18 165/95 H 93 01/28/19 09:25 87 01/28/19 07:41 36.9 C 89 18 167/90 H 95 Laboratory Results Laboratory Results - last 24 hr 01/27/19 01/28/19 01/28/19 23:11 05:24 08:47 APTT 62.2 H* PTT Ratio 2.3 POC Glucose Troponin I 0.148 H* 0.110 H* 01/28/19 01/28/19 01/28/19 08:49 10:53 11:30 APTT PTT Ratio POC Glucose 107 H 118 H Troponin I 0.079 H* 01/28/19 16:59 APTT PTT Ratio POC Glucose 117 H Troponin I Diagnostic Findings Telemetry personally reviewed: Sinus rhythm. No arrhythmia. Echo 01/28/2019: Normal LV size, wall motion, systolic function. EF 65-70%. Moderate LVH. No significant valvular abnormalities. Cardiac catheterization report reviewed as noted above. ECG personally reviewed: ECG 01/27/2019 1:37 a.m.: Sinus rhythm [address] abnormality. ECG 01/27/2019 at 4:50 p.m.: Sinus tachycardia 109 bpm. Nonspecific T-wave abnormality. LVH. Chest x-ray 01/27/2019: No active disease in the chest per Radiology. PG Care Time/CCT Total # of Minutes Spent Total Time Spent with Patient: Total time spent is greater than 50% in coordination of care (as documented) at patient's floor/unit and/or counseling patient:
[2019-01-28] MEDS ORDERED: NORTRIPTYLINE HCL 25 MG CAP PO SCH (21:00)
--- NOTE | 2019-01-29 00:42 | Billing Data ---
Coding Level of Care Code 13041 OBS Care - Level 3
[2019-01-29] MEDS: NSS + 20MEQ KCL 20 MEQ/1,000 ML BAG IV SCH (06:01)
[2019-01-29 06:07] LABS: Basophils # (auto) 0.01 K/uL (0-0.2); Basophils % (auto) 0.2 %; Eosinophils # (auto) 0.18 K/uL (0-0.5); Eosinophils % (auto) 3.7 %; Hematocrit (blood only) 38.3 % (37-47); Hemoglobin 12.3 g/dL (12.0-16.0); Immature Granulocytes # (auto) 0.01 K/uL (0.00-0.02); Immature Granulocytes % (auto) 0.2 %; Lymphocytes # (auto) 1.19 K/uL (1.2-3.4); Lymphocytes % (auto) 24.1 %; Mean Corpuscular Hemoglobin 26.7 pg (25-34); Mean Corpuscular Hgb Conc 32.1 g/dL (32-36); Mean Corpuscular Volume 83.3 fL (80-100); Mean Platelet Volume 10.1 fL (7.4-10.4); Monocytes # (auto) 0.56 K/uL (0.11-0.59); Monocytes % (auto) 11.4 %; Neutrophils # (auto) 2.98 K/uL (1.4-6.5); Neutrophils % (auto) 60.4 %; Platelet Count 233 K/uL (130-400); RDW Coefficient of Variation 14.7 % (11.5-14.5); RDW Standard Deviation 44.7 fL (36.4-46.3); White Blood Count 4.93 K/uL (4.8-10.8)
[2019-01-29 06:15] LABS: Partial Thromboplastin Ratio 0.9; Partial Thromboplastin Time 25.4 Seconds (21.0-31.0)
[2019-01-29 06:52] LABS: BUN Creatinine Ratio 12.3 (10-20); Creatinine Clr Calc Pharmacy 36.3 ml/min; Est GFR (African American) 58.8; Est GFR (Non-African American) 50.7; Potassium 4.3 mmol/L (3.5-5.1)
[2019-01-29] MEDS: INSULIN ASPART 100 UNITS/ML 3 ML PEN SC SCH ×2 (08:16→12:16)
[2019-01-29] MEDS: PANTOprazole 40 MG TAB PO SCH (08:16)
[2019-01-29] MEDS: ASPIRIN 81 MG ECTAB PO SCH (08:16)
[2019-01-29] MEDS: ISOSORBIDE MONO EXTENDED REL 30 MG TABCR PO SCH (08:17)
[2019-01-29] MEDS: MONTELUKAST SODIUM 10 MG TABLET PO SCH (08:17)
[2019-01-29] MEDS: FLUTICASONE PROPIONATE NA SPR 16 GM BTL SCH (08:17)
[2019-01-29] MEDS: CETIRIZINE HCL 10 MG TABLET PO SCH (08:17)
[2019-01-29] MEDS: TOLTERODINE TARTRATE 2 MG TAB PO SCH (08:17)
[2019-01-29] MEDS: SIMVASTATIN 10 MG TAB PO SCH (08:17)
--- NOTE | 2019-01-29 08:39 | Cardiology Progress Note ---
Date of Service January 29, 2019 Assessment & Plan (1) Angina pectoris: (2) CAD (coronary artery disease): (3) Elevated troponin: (4) Hypertension: (5) HLD (hyperlipidemia): (6) Palpitations: ASSESSMENT/PLAN: 1. Angina: Her presenting symptoms were concerning for angina. She has not had any further angina. She has low level troponin elevation, peaking at 0.148. No wall motion abnormalities on echo. We discussed treatment options such as coronary angiography and medical therapy. She is willing to consider coronary angiography but would first like to be discharged and discuss with her PCP and primary customs consultant. She was significantly hypertensive on presentation and shelby s remained hypertensive. Will adjust medical therapy as per wishes as there is no urgent indication for angiography. Continue increased dose of metoprolol succinate 150 mg daily. Resume PITER inhibitor. Titrate medications as appropriate for blood pressure control. Can also consider calcium channel adriane which may offer some antianginal effect. According to records she did not tolerate higher doses of isosorbide mononitrate but she does not recall this. 2. CAD: She had multivessel CAD in 2009. Symptoms concerning for angina. Plan as above 81 mg daily, beta-adriane, and statin therapy. Blood optimize blood pressure management. 3. Elevated troponin: She did not rule in for MT, but was likely ischemic. Tachyarrhythmia may have precipitated her ischemia with underlying CAD as she does recall having fluttering sensation initially with her symptoms. Beta- adriane has been titrated. 4. Palpitations: Recommend continuation of telemetry. Thirty day event monitor on discharge. Continue higher dose of beta-adriane. If she did have a tachyarrhythmia, it may have precipitated her ischemic event given her underlying CAD. 5. Hypertension: Systolic blood pressure was greater than 200 on presentation. Severe hypertension may also be precipitating her angina given underlying CAD. Beta-adriane has been titrated. Recommend resuming PITER-inhibitor to optimize blood pressure control. Can also consider calcium channel adriane for antianginal relief if necessary. 6. Dyslipidemia: Consider high-intensity statin therapy. 7. Disposition: Patient care discussed with Dr. Irvin of the primary hospitalist service. Please call with other questions or concerns. Recommend close follow-up with her primary customs consultant, Dr. Hammonds, on discharge. He can then arrange for 30-day event monitor at that appointment. It was recommended that she ambulate in the hallway to evaluate for anginal symptoms. Highly complex medical issues. Subjective She denies chest pain. She denies shortness of breath, palpitations, syncope, near syncope, bleeding, or edema. She has not yet walked in the hallway but she has ambulated in her hospital room and denies exertional symptoms. Review of systems: As above. Physical Exam Physical Exam: Gen.: No acute distress. Alert and oriented. HEENT: Anicteric sclera. Neck: No JVD. Cardiac: Regular. Normal S1-S2. No murmurs, rubs, or gallops. Pulmonary: Clear to auscultation bilaterally without wheezes, rales, or rhonchi. Abdomen: Soft, nontender, nondistended, with normoactive bowel sounds. No bruits noted. Extremities:No edema or cyanosis. Psychiatric: Affect appears appropriate. Results & Data Vital Signs (Past 12 Hours) Vital Signs Temp Pulse Pulse Resp BP Pulse Ox 01/29/19 07:25 36.8 C 67 18 163/78 H 96 01/29/19 04:46 36.8 C 69 20 178/85 H 94 01/28/19 23:52 62 01/28/19 22:43 36.7 C 65 18 177/81 H 94 Laboratory Results Laboratory Results - last 24 hr 01/28/19 01/28/19 01/28/19 08:47 08:49 10:53 WBC RBC Hgb Hct MCV MCH MCHC RDW Std Deviation RDW Coeff of Abrahan Plt Count MPV Immature Gran % (Auto) Neut % (Auto) Lymph % (Auto) [place] % (Auto) Eos % (Auto) Baso % (Auto) Immature Gran # (Auto) Neut # (Auto) Lymph # (Auto) [place] # (Auto) Eos # (Auto) Baso # (Auto) APTT 62.2 H* PTT Ratio 2.3 Sodium Potassium Chloride Carbon Dioxide Anion Gap BUN Creatinine Est Cr Clr Drug Dosing Est GFR ( Amer) Est GFR (Non-Af Amer) BUN/Creatinine Ratio Glucose POC Glucose 107 H Calcium Troponin I 0.079 H* 01/28/19 01/28/19 01/28/19 11:30 16:59 20:36 WBC RBC Hgb Hct MCV MCH MCHC RDW Std Deviation RDW Coeff of Abrahan Plt Count MPV Immature Gran % (Auto) Neut % (Auto) Lymph % (Auto) [place] % (Auto) Eos % (Auto) Baso % (Auto) Immature Gran # (Auto) Neut # (Auto) Lymph # (Auto) [place] # (Auto) Eos # (Auto) Baso # (Auto) APTT PTT Ratio Sodium Potassium Chloride Carbon Dioxide Anion Gap BUN Creatinine Est Cr Clr Drug Dosing Est GFR ( Amer) Est GFR (Non-Af Amer) BUN/Creatinine Ratio Glucose POC Glucose 118 H 117 H 92 Calcium Troponin I 01/29/19 01/29/19 01/29/19 05:51 05:51 05:51 WBC 4.93 RBC 4.60 Hgb 12.3 Hct 38.3 MCV 83.3 MCH 26.7 MCHC 32.1 RDW Std Deviation 44.7 RDW Coeff of Abrahan 14.7 H Plt Count 233 MPV 10.1 Immature Gran % (Auto) 0.2 Neut % (Auto) 60.4 Lymph % (Auto) 24.1 [place] % (Auto) 11.4 Eos % (Auto) 3.7 Baso % (Auto) 0.2 Immature Gran # (Auto) 0.01 Neut # (Auto) 2.98 Lymph # (Auto) 1.19 L [place] # (Auto) 0.56 Eos # (Auto) 0.18 Baso # (Auto) 0.01 APTT 25.4 PTT Ratio 0.9 Sodium 141 Potassium 4.3 D Chloride 110 H Carbon Dioxide 23 Anion Gap 7.0 BUN 13 Creatinine 1.04 Est Cr Clr Drug Dosing 36.3 Est GFR ( Amer) 58.8 Est GFR (Non-Af Amer) 50.7 BUN/Creatinine Ratio 12.3 Glucose 92 POC Glucose Calcium 9.0 Troponin I 01/29/19 07:54 WBC RBC Hgb Hct MCV MCH MCHC RDW Std Deviation RDW Coeff of Abrahan Plt Count MPV Immature Gran % (Auto) Neut % (Auto) Lymph % (Auto) [place] % (Auto) Eos % (Auto) Baso % (Auto) Immature Gran # (Auto) Neut # (Auto) Lymph # (Auto) [place] # (Auto) Eos # (Auto) Baso # (Auto) APTT PTT Ratio Sodium Potassium Chloride Carbon Dioxide Anion Gap BUN Creatinine Est Cr Clr Drug Dosing Est GFR ( Amer) Est GFR (Non-Af Amer) BUN/Creatinine Ratio Glucose POC Glucose 82 Calcium Troponin I Diagnostic Findings Telemetry personally reviewed: Sinus rhythm. No arrhythmia. Medications Administered Current Inpatient Medications Acetaminophen (Tylenol) 650 mg PO Q4H PRN PRN Reason: Pain or Fever Stop: 02/26/19 23:03 Aspirin (Ecotrin Ectab) 81 mg PO DAILY [facility] Stop: 02/27/19 08:59 Last Admin: 01/29/19 08:16 Dose: 81 mg Documented by: Cetirizine HCl (Zyrtec) 10 mg PO DAILY KIMBERLEY Stop: 02/27/19 08:59 Last Admin: 01/29/19 08:17 Dose: 10 mg Documented by: Dextrose (Dextrose 50%) 25 - 50 ml IV UD PRN; Protocol PRN Reason: Hypoglycemia Protocol Stop: 02/26/19 23:44 Fluticasone Propionate (Flonase) 2 sprays NA DAILY KIMBERLEY Stop: 02/27/19 08:59 Last Admin: 01/29/19 08:17 Dose: 2 sprays Documented by: Glucagon (Glucagen) 1 mg SQ UD PRN; Protocol PRN Reason: Hypoglycemia Protocol Stop: 02/26/19 23:44 Glucose (Glucose 40%) 15 - 30 gm PO UD PRN; Protocol PRN Reason: Hypoglycemia Protocol Stop: 02/26/19 23:44 Glucose (Dex4 Glucose) 4 - 8 tabs PO UD PRN; Protocol PRN Reason: Hypoglycemia Protocol Stop: 02/26/19 23:44 Potassium Chloride/Sodium Chloride (Normal Saline W/20 Meq Kcl) 20 meq in 1,000 mls @ 100 mls/hr IV .Q10H KIMBERLEY Stop: 02/26/19 23:03 Last Admin: 01/29/19 06:01 Dose: 100 mls/hr Documented by: Insulin Aspart (Novolog Flexpen) 0 units SC ACHS [facility] Stop: 02/27/19 07:29 Last Admin: 01/29/19 08:16 Dose: Not Given Documented by: Isosorbide Mononitrate (Imdur Extended Rel) 30 mg PO DAILY [facility] Stop: 02/27/19 08:59 Last Admin: 01/29/19 08:17 Dose: 30 mg Documented by: Metoprolol Succinate (Toprol Xl) 150 mg PO QAM [facility] Stop: 02/28/19 08:59 Miscellaneous (Order Awaiting Action) 1 ea N/A QS [facility] Stop: 02/27/19 00:00 Last Admin: 01/29/19 07:44 Dose: Not Given Documented by: Miscellaneous (Carbohydrates For Hypoglycemia) 15 - 30 gm PO UD PRN PRN Reason: Hypoglycemia Treatment Stop: 02/26/19 23:44 Montelukast Sodium (Singulair) 10 mg PO DAILY KIMBERLEY Stop: 02/27/19 08:59 Last Admin: 01/29/19 08:17 Dose: 10 mg Documented by: Nitroglycerin (Nitrostat) 0.4 mg SL UD PRN PRN Reason: Chest Pain Stop: 02/26/19 23:03 Nortriptyline HCl (Pamelor) 25 mg PO QPM KIMBERLEY Stop: 02/27/19 20:59 Last Admin: 01/28/19 21:29 Dose: 25 mg Documented by: Ondansetron HCl (Zofran) 4 mg IV Q6H PRN PRN Reason: Nausea Stop: 02/26/19 23:03 Pantoprazole Sodium (Protonix) 40 mg PO BID [facility] Stop: 02/26/19 23:03 Last Admin: 01/29/19 08:16 Dose: 40 mg Documented by: Simvastatin (Zocor) 10 mg PO DAILY [facility] Stop: 02/27/19 08:59 Last Admin: 01/29/19 08:17 Dose: 10 mg Documented by: Tolterodine Tartrate (Detrol) 2 mg PO BID [facility] Stop: 02/26/19 23:03 Last Admin: 01/29/19 08:17 Dose: 2 mg Documented by: PG Care Time/CCT Total # of Minutes Spent Total Time Spent with Patient: Total time spent is greater than 50% in coordination of care (as documented) at patient's floor/unit and/or counseling patient:
[2019-01-29] MEDS ORDERED: METOPROLOL SUCC 50MG EXT REL TAB PO SCH (09:00)
[2019-01-29] MEDS ORDERED: LOSARTAN POTASSIUM 25 MG TAB PO SCH (09:00)
--- NOTE | 2019-01-29 17:43 | Discharge Summary ---
Date of Service January 29, 2019 Admission HPI Per Admitting Provider 78-year-old female with history of type vessel occlusive coronary artery disease, arterial hypertension, DM 2, lipidemia, GERD anxiety, depression presents status post chest pain this afternoon after her colonoscopy. Reports she put on her pajamas and wanted to take a nap when the chest tightness started. She also felt some flutters. At the time her blood pressure was elevated and she was also tachycardic. Associated with mild shortness of breath and lightheadedness after the episode. Denies any diaphoresis, nausea, vomiting. Chest pain went away after she received Nitropaste. Received 3 nitros in route and aspirin 324 mg x 1. Denies any fever, chills, abdominal pain, constipation, dysuria, hematuria. Patient reports taking 2 nitros before going up the hill at her living facility, [facility] however after she received PT she feels stronger and can go up and down the hill without needing to take any nitro. History of smoking for 2 to 3 years less than half a pack per day quit 50 years ago. Drinks alcohol about once a month 1 ounce of liquor or couple glasses of wine Principal Diagnosis Chest pain - Possibly angina Discharge Exam Constitutional WD/WN, vitals as above Eyes EOM intact bilaterally; no conjunctival abnormality ENMT external ear and nose normal, oropharynx normal Neck trachea midline, no thyromegaly normal visual inspection Respiratory normal respiratory effort, lungs clear to auscultation no respiratory distress Cardiovascular RRR, no murmur, no edema Gastrointestinal (Abdomen) Inspection/Auscultation: abdomen normal to inspection; abdomen not distended Musculoskeletal no cyanosis or clubbing, extremities motor strength 5/5 Skin no rashes, warm and dry Neurologic moves all extremities and awake Psychiatric Orientation: alert, oriented to person and cooperative Discharge Data Allergies Allergy/AdvReac Type Severity Reaction Status Date / Time Sulfa (Sulfonamide Allergy Intermediate RASH, RED Verified 01/27/19 20:12 Antibiotics) ALL OVER BODY lisinopril Allergy Mild Cough Verified 01/27/19 20:12 Consultations 01/27/19 19:16 ED Decision to Admit Stat 01/27/19 23:04 Consult Cardiology Routine Hospital Course (1) Myocardial injury: Very mild troponin bump from 0.04 to 1.1, then down. Had some possible "flutter" sensation in the chest, but otherwise asymptomatic. - On heparin gtt for a short time. Determined to not be ACS, so stopped. - Continued home ASA, beta-adriane, and statin - Increased home metop XL 75mg -> metop XL 150mg PO daily. - Patient preferred to defer any investigation/intervention until discussion with her PCP and pest control service representative. Will have explosives worker call to arranged appointment with Dr. Hammonds this week. Cardiology also thought that tachyarrythmia may have caused the mild troponin elevation as she reported some "flutter" sensation in her chest. Will order Holter monitor to investigate this per cardiology recs. (2) History of coronary artery disease: Cath in 2009 with 60-70% lesions in diagonals, LCx, and RCA. - As above (3) Hypertension: BP presently 165/95. - Continued home meds: Imdur, beta-adriane - Increased metoprolol as above to 150mg PO daily. (4) Diabetes: A1c was 6.9% in 11/2018. Does not appear she is on home DM meds. - Sliding scale insulin (5) GERD (gastroesophageal reflux disease): - Continue home meds Total Time Total Time Spent Total Time Spent (In Minutes): 45 Total Time Includes: Examination of the Patient, Discharge Planning and Communic ation With Other Providers Discharge Plan Discharge Items Patient Disposition: Home - Self-Care Reason For Visit: CHEST PAIN Discharge Diagnosis: Chest pain - Angina Activity: Resume your previous activity Non-emergency contact: Primary Care Provider and Jewelry Engraver Call non-emergency contact if: your symptoms worsen and your pain is worsening Follow-up/Referrals: Angel Hammonds MD [Physician] - (Please see Dr. Hammonds this week to jackelin sinclair any further testing.) Smooth Doan MD [Primary Care Provider] - Diet: Heart Healthy Addtl Attending Provider Instructions: Please take the increased metoprolol XL at 150mg daily. Follow up with Dr. Hammonds in the office this week. Our nurse navigator will call you tomorrow. We are arranging for a heart monitor for 30-days which should be delivered to your home. Pending Studies at Discharge: No Stand-Alone Forms: Call Back Authorization, [employer], Smoking Cessation Medications and DC Order Prescriptions: Continued nitroglycerin [Nitrostat] 0.4 mg tablet, sublingual 0.4 mg Sublingual DIRECTED PRN (Reason: Chest Pain) Qty: 25 RF: 3 nortriptyline 25 mg capsule 25 mg PO QPM RF: 0 simvastatin 10 mg tablet 10 mg PO DAILY RF: 0 isosorbide mononitrate 30 mg tablet extended release 24 hr 30 mg PO DAILY RF: 0 tolterodine 2 mg tablet 2 mg PO BID Qty: 180 RF: 3 aspirin 81 mg Tablet,Delayed Release (Dr/Ec) 81 mg PO DAILY RF: 0 fluticasone propionate [Flonase Allergy Relief] 50 mcg/actuation [place] ,Suspension 2 spray INTRANASAL DAILY RF: 0 cholecalciferol (vitamin D3) [Vitamin D3] 2,000 unit Tablet 2,000 unit PO DAILY RF: 0 Zyrtec 10 mg Capsule 10 mg PO DAILY RF: 0 cyanocobalamin (vitamin B-12) 1,000 mcg Tablet 1,000 mcg PO DAILY RF: 0 pantoprazole 40 mg Tablet,Delayed Release (Dr/Ec) 40 mg PO BID RF: 0 montelukast 10 mg Tablet 10 mg PO DAILY RF: 0 candesartan 16 mg tablet 16 mg PO DAILY RF: 0 Changed metoprolol succinate [Toprol XL] 50 mg tablet extended release 24 hr 150 mg PO QAM Qty: 0 RF: 0 Discharge Orders: Discharge Order (Routine); Ordered 01/29/19 Ordered By: Tushar Irvin Admission Data Admit Date/Time: 01/27/19 21:30 Attending Provider: Tushar Irvin Admit Provider: Memo De León Primary Care Provider: Smooth Doan Other Providers: Feliciano Vargas ; Tushar Irvin Other Interventions: Discharge Summary Assessment (RN) Last Done: 01/29/19 11:58 DC Date/Time DO NOT enter until pt leaves facility: 01/29/19 14:00
== END 2019-01-29 14:00 | disposition home or self-care (01) ==
LOC: ED 16:47 → 2N 16:47 → SUATTDRO 21:30 → 2N 22:38

== ENCOUNTER 2020-07-24 11:07 | Observation (INO) ==
[2020-07-24] MEDS ORDERED: LABETALOL HCL IV 5 MG/ML 20ML IV STA (11:18)
[2020-07-24] MEDS ORDERED: ISOSORBIDE MONO EXTENDED REL 30 MG TABCR PO STA (11:25)
[2020-07-24] MEDS ORDERED: METOPROLOL SUCC 50MG EXT REL TAB PO STA (11:27)
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
[2020-07-24 12:02] LABS: Basophils # (auto) 0.01 K/uL (0-0.2); Basophils % (auto) 0.2 %; Eosinophils # (auto) 0.14 K/uL (0-0.5); Eosinophils % (auto) 2.5 %; Hematocrit (blood only) 42.6 % (37-47); Hemoglobin 13.8 g/dL (12.0-16.0); Lymphocytes # (auto) 0.88 K/uL (1.2-3.4); Mean Corpuscular Hemoglobin 27.3 pg (25-34); Mean Corpuscular Hgb Conc 32.4 g/dL (32-36); Mean Corpuscular Volume 84.2 fL (80-100); Mean Platelet Volume 10.1 fL (7.4-10.4); Monocytes # (auto) 0.58 K/uL (0.11-0.59); Monocytes % (auto) 10.5 %; Neutrophils # (auto) 3.89 K/uL (1.4-6.5); Neutrophils % (auto) 70.8 %; Platelet Count 210 K/uL (130-400); RDW Coefficient of Variation 14.5 % (11.5-14.5); RDW Standard Deviation 44.8 fL (36.4-46.3); Red Blood Count 5.06 M/uL (4.2-5.4)
[2020-07-24 12:25] LABS: Alanine Aminotransferase 22 U/L (12-78); Albumin Level 3.7 gm/dl (3.4-5.0); Aspartate Aminotransferase 21 U/L (15-37); BUN Creatinine Ratio 13.1 (10-20); Blood Urea Nitrogen 15 mg/dl (7-18); Calcium 8.9 mg/dl (8.5-10.1); Carbon Dioxide 30 mmol/L (21-32); Chloride 107 mmol/L (98-107); Creatinine Clr Calc Pharmacy 31.8 ml/min; Est GFR (African American) 50.6; Est GFR (Non-African American) 43.7; Glucose 91 mg/dl (70-99); Potassium 4.1 mmol/L (3.5-5.1); Sodium 141 mmol/L (136-145)
[2020-07-24 12:29] LABS: Alkaline Phosphatase 77 U/L (45-117); Bilirubin,Total 0.5 mg/dl (0.2-1); Globulin 3.6 gm/dl (2.5-4.0); Total Protein 7.3 gm/dl (6.4-8.2); Troponin I < 0.015 ng/ml (0-0.045)
[2020-07-24 12:53] LABS: Influenza A virus by PCR Negative (Neg); Influenza B virus by PCR Negative (Neg); RSV by PCR Negative (Neg); SARS CoV2 RNA(COVID-19) InHosp NEGATIVE (Negative)
[2020-07-24] MEDS ORDERED: VALSARTAN 80 MG TAB PO STA (12:53)
[2020-07-24] MEDS ORDERED: hydrALAZINE HCL 20 MG/ML VIAL IV PRN (14:16)
[2020-07-24] MEDS: ACETAMINOPHEN 325 MG TAB PO PRN (17:51)
[2020-07-24] MEDS ORDERED: SIMVASTATIN 40 MG TAB PO SCH (21:00)
[2020-07-24] MEDS ORDERED: MIRTAZAPINE TAB 15 MG TAB PO SCH (21:00)
[2020-07-24] MEDS ORDERED: METOPROLOL SUCC 50MG EXT REL TAB PO SCH (21:00)
[2020-07-24] MEDS: TOLTERODINE TARTRATE 2 MG TAB PO SCH (21:05)
[2020-07-24] MEDS: busPIRone 5 MG TAB PO SCH (21:06)
[2020-07-25] MEDS: ACETAMINOPHEN 325 MG TAB PO PRN (05:44)
[2020-07-25] MEDS: busPIRone 5 MG TAB PO SCH (08:09)
[2020-07-25] MEDS: TOLTERODINE TARTRATE 2 MG TAB PO SCH (08:10)
--- NOTE | 2020-07-25 08:59 | History & Physical Bridge Note ---
Date of Service July 25, 2020 History & Physical Bridge Note I have examined the patient, reviewed the History & Physical and in the interval since the performance of the History & Physical I have noted the following changes of clinical significance: Patient's blood pressure has improved. Remains NPO at this time. No complaints. PE: A&Ox3. Lungs CTA bilaterally. RRR without M/R/G. Abdomen soft, nontender. Normal bowel sounds. A/P: HTN, now improved. 1. Proceed with colonoscopy today as scheduled with Dr. Petty. 2. Further recommendations pending results of testing. Supervising Physician Co-Signing Physician Notes Agree with MONSTER Avendano as above Abd: Soft, NT, ND, +BS Proceed with colonoscopy today
[2020-07-25] MEDS ORDERED: CYANOCOBALAMIN 500 MCG TABLET (VITAMIN B-12) PO SCH (09:00)
[2020-07-25] MEDS ORDERED: CETIRIZINE HCL 10 MG TABLET PO SCH (09:00)
[2020-07-25] MEDS ORDERED: CHOLECALCIFEROL 1,000 UNITS 25 MCG TAB PO SCH (09:00)
[2020-07-25] MEDS ORDERED: ISOSORBIDE MONO EXTENDED REL 30 MG TABCR PO SCH (09:00)
[2020-07-25] MEDS ORDERED: MONTELUKAST SODIUM 10 MG TABLET PO SCH (09:00)
[2020-07-25] MEDS ORDERED: ASPIRIN 81 MG ECTAB PO SCH (09:00)
[2020-07-25] MEDS ORDERED: VALSARTAN 80 MG TAB PO SCH (09:00)
[2020-07-25] MEDS ORDERED: PANTOprazole 40 MG TAB PO SCH (09:00)
[2020-07-25] MEDS ORDERED: METOPROLOL SUCC 50MG EXT REL TAB PO SCH ×2 (09:00→21:00)
[2020-07-25] MEDS ORDERED: PROPOFOL IV EMULSION 10 MG/ML 20 ML VIAL IV ONE (09:43)
[2020-07-25] MEDS ORDERED: LIDOCAINE HCL 2% 2 ML VIAL/AMP(20MG/ML) INFIL ONE (09:43)
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
--- NOTE | 2020-07-25 13:22 | GI REPORT ---
Patient Name: Briseyda Buck Procedure Date: 07/25/2020 12:07 PM Date of : 1940 Admit Type: Inpatient Age: 79 Gender: Female Attending MD: Ebenezer Petty DO Procedure: Colonoscopy Providers: Ebenezer Petty DO Referring MD: Trav Zarco Md Indications: Family history of colon cancer in a first-degree relative before age 60 years Medicines: Monitored Anesthesia Care Complications: No immediate complications. Estimated Blood Loss: Estimated blood loss: none. Procedure: Pre-Anesthesia Assessment: - Prior to the procedure, a History and Physical was performed, and patient medications and allergies were reviewed. The patient's tolerance of previous anesthesia was also reviewed. The risks and benefits of the procedure and the sedation options and risks were discussed with the patient. All questions were answered, and informed consent was obtained. Prior Anticoagulants: The patient has taken no previous anticoagulant or antiplatelet agents except for aspirin. ASA Grade Assessment: III - A patient with severe systemic disease. After reviewing the risks and benefits, the patient was deemed in satisfactory condition to undergo the procedure. After I obtained informed consent, the scope was passed under direct vision. Throughout the procedure, the patient's blood pressure, pulse, and oxygen saturations were monitored continuously. The Colonoscope was introduced through the anus and advanced to the terminal ileum. The colonoscopy was performed without difficulty. The patient tolerated the procedure well. The quality of the bowel preparation was good. The terminal ileum, ileocecal valve, appendiceal orifice, and rectum were photographed. Findings: The perianal and digital rectal examinations were normal. Two sessile polyps were found in the ascending colon. The polyps were 3 to 4 mm in size. These polyps were removed with a cold snare. Resection and retrieval were complete. Non-bleeding internal hemorrhoids were found during retroflexion. The hemorrhoids were small. Impression: - Two 3 to 4 mm polyps in the ascending colon, removed with a cold snare. Resected and retrieved. - Non-bleeding internal hemorrhoids. Recommendation: - Resume previous diet. - Continue present medications. - Repeat colonoscopy for surveillance based on pathology results. - Return to primary care physician as previously scheduled. Ebenezer Petty DO 07/25/2020 1:21:49 PM This report has been signed electronically. Note Initiated On: 07/25/2020 12:07 PM Number of Addenda: 0 I attest to the content of the Intraoperative Record and orders documented therein, exceptions below {[id number]}
--- NOTE | 2020-07-25 15:40 | Anesthesiology Progress Note ---
Date of Service July 25, 2020 Anesthesia Post Procedure Vital Signs Vital Signs: Temp Pulse Pulse Pulse Resp BP BP 07/25/20 15:01 36.6 C 63 18 151/83 H 07/25/20 13:37 64 18 158/70 H 07/25/20 13:17 62 18 147/60 H 07/25/20 13:02 58 L 14 117/52 L 07/25/20 11:38 36.0 C L 71 20 155/89 H 07/25/20 11:20 36.4 C L 75 16 97/60 L 07/25/20 07:28 66 07/25/20 07:14 36.7 C 69 16 146/76 H 07/25/20 05:45 150/73 H 07/25/20 05:21 168/85 H 07/25/20 04:15 201/104 H 07/25/20 03:54 36.6 C 60 20 170/69 H 07/25/20 01:45 63 07/24/20 23:35 36.5 C 60 20 116/56 L 07/24/20 21:40 147/79 H 07/24/20 19:56 169/78 H 07/24/20 19:44 36.8 C 61 20 190/92 H 07/24/20 17:34 48 L 154/65 H Pulse Ox 07/25/20 15:01 99 07/25/20 13:37 97 07/25/20 13:17 98 07/25/20 13:02 100 07/25/20 11:38 97 07/25/20 11:20 92 07/25/20 07:28 07/25/20 07:14 97 07/25/20 05:45 07/25/20 05:21 07/25/20 04:15 07/25/20 03:54 98 07/25/20 01:45 07/24/20 23:35 95 07/24/20 21:40 07/24/20 19:56 07/24/20 19:44 100 07/24/20 17:34 Transfer of Care Handoff Completed per policy Notes Mental Status: alert / awake / arousable and participated in evaluation Patient Amnestic to Procedure: Yes Nausea / Vomiting: adequately controlled Pain: adequately controlled Airway Patency, RR, SpO2: stable & adequate BP & HR: stable & adequate Hydration State: stable & adequate Anesthetic Complications: no major complications apparent and Pt Satisfied with anesthetic care
--- NOTE | 2020-07-25 16:25 | Discharge Summary ---
Date of Service July 25, 2020 Admission HPI Per Admitting Provider Briseyda Buck is an 79 year old female who presents to the ER from endoscopy suite after high blood pressures prior to her colonoscopy. She reports not knowing her medications as they are managed by [facility] on a weekly basis. She reports forgetting to take her medications this morning. In 2019 she also had to be admitted after her colonoscopy with chest pain suspected to be anginal related to hypertensive emergency. Therefore on discussion with anesthesiology will admit the patient to hospital to control blood pressure to reattempt colonoscopy tomorrow. She currently feels like her baseline self. Specifically denying any chest pain, headache, vision changes, shortness of breath, palpitations. Blood pressure 229/104 in the emergency room. Discharge Data Allergies Allergy/AdvReac Type Severity Reaction Status Date / Time Sulfa (Sulfonamide Allergy Intermediate RASH, RED Verified 07/24/20 10:01 Antibiotics) ALL OVER BODY lisinopril Allergy Mild Cough Verified 07/24/20 10:01 Consultations 07/24/20 14:16 Consult Gastroenterology Routine Procedures Performed Operation Date: 07/25/20 16:00 Actual Procedures p Colonoscopy - Ebenezer Head Case, DO Hospital Course (1) Hypertensive urgency: Will restart her usual blood pressure medication while in the ER with ISMN ER 30mg PO and Metoprolol succinate 150mg PO. Switch candesartan 16mg to valsartan 160mg PO per hospital formulary. Hydralazine 10 mg as needed for systolic blood pressure greater than 180. (2) Colonoscopy planned: Clear liquid diet for planned colonoscopy tomorrow. Will defer to GI if she needs to repeat bowel prep Consult gastroenterology (3) CAD (coronary artery disease): Chronic exertional angina. Continue aspirin, metoprolol, isosorbide mononitrate, simvastatin (4) Depression: Continue mirtazapine 30 mg p.o. at bedtime (5) Diabetes: HbA1c 6.9 On no outpatient medication for this. No need for insulin coverage or BSG ACHS during inpatient stay. (6) Dyslipidemia: Continue simvastatin 40 mg p.o. at bedtime Discharge Plan Discharge Items Patient Disposition: Home - Self-Care Reason For Visit: HYPERTENSIVE URGENCY Discharge Diagnosis: Hypertensive urgency - secondary to missing her usual medication Need for colonoscopy Activity: Resume your previous activity Non-emergency contact: Primary Care Provider Call non-emergency contact if: you have any medication questions and your symptoms worsen Follow-up/Referrals: Twyla Alfaro [Primary Care Provider] - Bob Attending Provider Instructions: You were observed overnight at [facility] from July 24-2020 due to need to complete colonoscopy and hypertensive urgency at the time of your outpatient colonoscopy. You hypertensive urgency resolved with your usual medication regimen and no changes to your medications have been made. 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 Pending Studies at Discharge: Yes Stand-Alone Forms: [facility], Smoking Cessation Medications and DC Order Prescriptions: Continued nitroglycerin [Nitrostat] 0.4 mg tablet, sublingual 0.4 mg Sublingual DIRECTED PRN (Reason: Chest Pain) Qty: 25 RF: 3 metoprolol succinate 50 mg tablet extended release 24 hr See Rx Instructions PO DAILY Qty: 90 RF: 5 tolterodine 2 mg tablet 2 mg PO BID Qty: 180 RF: 3 isosorbide mononitrate 30 mg tablet extended release 24 hr 30 mg PO QAM RF: 0 aspirin 81 mg Tablet,Delayed Release (Dr/Ec) 81 mg PO QAM RF: 0 fluticasone propionate [Flonase Allergy Relief] 50 mcg/actuation [place],Suspension 2 spray INTRANASAL QAM RF: 0 cholecalciferol (vitamin D3) [Vitamin D3] 2,000 unit Tablet 2,000 unit PO QAM RF: 0 Zyrtec 10 mg Capsule 10 mg PO QAM RF: 0 montelukast 10 mg Tablet 10 mg PO QAM RF: 0 pantoprazole 40 mg tablet,delayed release (DR/EC) 40 mg PO Q OTHER DAY RF: 0 candesartan 16 mg tablet 16 mg PO QAM RF: 0 buspirone 5 mg Tablet 5 mg PO BID RF: 0 simvastatin 40 mg Tablet 40 mg PO HS RF: 0 cyanocobalamin (vitamin B-12) [Vitamin B-12] 500 mcg Tablet 500 mcg PO QAM RF: 0 mirtazapine 30 mg Tablet 30 mg PO HS RF: 0 metronidazole [MetroCream] 0.75 % Cream 1 applic TOPICAL BID RF: 0 Discharge Orders: Discharge Order (Routine); Ordered 07/25/20 Ordered By: Trav Rod Admission Data Admit Date/Time: 07/24/20 12:58 Attending Provider: Trav Rod Admit Provider: Trav Rod Primary Care Provider: Twyla Alfaro Other Providers: Ebenezer Petty Other Interventions: Discharge Summary Assessment (RN) Last Done: 07/25/20 13:37 Coding Diagnoses Hypertensive urgency I16.0 Colonoscopy planned CAD (coronary artery disease) I25.10 Depression F32.9 Diabetes E11.9 Dyslipidemia E78.5
--- NOTE | 2020-07-25 20:12 | Electrocardiogram Report ---
Test Reason : Blood Pressure : / mmHG Vent. Rate : 061 BPM Atrial Rate : 061 BPM P-R Int : 132 ms QRS Dur : 088 ms QT Int : 436 ms P-R-T Axes : 009 -41 003 degrees QTc Int : 438 ms Normal sinus rhythm Left axis deviation Moderate voltage criteria for LVH, may be normal variant Abnormal ECG When compared with ECG of 27-JAN-2019 22:06, Vent. rate has decreased BY 41 BPM Inverted T waves have replaced nonspecific T wave abnormality in Inferior leads Confirmed by Feliciano Vargas ([id number]) on 07/25/2020 8:12:15 PM Referred By: Twyla Alfaro Confirmed By:Feliciano Vargas
== END 2020-07-25 18:09 | disposition home or self-care (01) ==
LOC: 2N 11:07 → ED 11:07 → 2N 13:30

== ENCOUNTER 2024-04-21 05:45 | Inpatient (IN) ==
[2024-04-21 06:23] LABS: Basophils # (auto) 0.02 K/uL (0.00-0.20); Basophils % (auto) 0.1 %; Hematocrit (blood only) 36.6 % (37.0-47.0); Hemoglobin 11.7 g/dl (12.0-16.0); Immature Granulocytes # (auto) 0.09 K/uL (0.01-0.20); Immature Granulocytes % (auto) 0.7 %; Lymphocytes # (auto) 0.86 K/uL (1.20-3.40); Lymphocytes % (auto) 6.4 %; Mean Corpuscular Hemoglobin 28.5 pg (25.0-34.0); Mean Corpuscular Volume 89.1 fL (80.0-100.0); Mean Platelet Volume 10.3 fL (9.4-12.4); Monocytes # (auto) 1.19 K/uL (0.11-0.59); Monocytes % (auto) 8.8 %; Neutrophils # (auto) 11.35 K/uL (1.40-6.50); Platelet Count 230 K/uL (130-400); RDW Coefficient of Variation 13.8 % (11.5-14.5); RDW Standard Deviation 45.1 fL (36.4-46.3); Red Blood Count 4.11 M/uL (4.20-5.40); White Blood Count 13.51 K/ul (4.8-10.8)
[2024-04-21 06:25] LABS: Base Excess VBG 3.6 mEq/L; HCO3 VBG 30 mmol/L; Oxygen Saturation VBG 67.9 %; PCO2 VBG 52 mmHg (38-50); PO2 VBG 36 mmHg; pH VBG 7.37 (7.36-7.41)
[2024-04-21 06:43] LABS: Albumin Globulin Ratio 1.3 (0.9-2); Albumin Level 3.9 gm/dl (3.4-5.0); BUN Creatinine Ratio 25.8 (10-20); Bilirubin,Total 0.6 mg/dl (0.2-1.0); Calcium 9.9 mg/dl (8.6-10.3); Creatinine Clr Calc Pharmacy 19.1 ml/min; Globulin 3.1 gm/dl (2.5-4.0); Magnesium 2.4 mg/dl (1.7-2.4); Potassium 4.5 mmol/L (3.5-5.1)
[2024-04-21] MEDS: SODIUM CHLORIDE 0.9% 1,000 ML IV ONE ×2 (06:43→09:14)
--- NOTE | 2024-04-21 06:47 | Emergency Department Note ---
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 evidence of acute fracture, dislocation, or significant soft tissue abnormalities. 2. Incidental note made of ill-defined pulmonary infiltrates in right perihilar region. Postinflammatory. Suggest clinical correlation. X-ray chest is advised for further evaluation. Disclaimer: A subtle bone abnormality or fracture may not be readily apparent on X-rays, thus clinical correlation and further imaging including follow-up CT, MRI, or follow-up X-rays are advised as needed. Electronically signed by Xuan Noriega 04-21-2024 08:01 AM Abdomen/Pelvis CT 04/21/24 07:[address] WITHOUT CONTRAST CT DOSE: 3572 HISTORY: fall TECHNIQUE: Multiaxial CT images of the abdomen and pelvis were performed without contrast. A dose lowering technique was utilized adhering to the principles of ALARA. COMPARISON STUDY: None FINDINGS: There are diffuse coronary artery calcifications. ABDOMEN: Gallbladder is surgically absent. Liver, spleen, pancreas, kidneys, and adrenal glands have an unremarkable non-IV contrast appearance. There are diffuse atherosclerotic calcifications. No abdominal aortic aneurysm. Pelvis: Uterus is absent. No adnexal mass. Urinary bladder is nondistended. No bowel inflammation or obstruction. No free fluid, free air, or hematoma seen. There are small bilateral fat-containing inguinal hernias. No enlarged adenopathy. Osseous structures: There is mild height loss at the L5 vertebral body, possibly chronic. No other fracture seen at the visualized osseous structures. There is diffuse lumbar degenerative disc disease. IMPRESSION: 1. Possibly chronic height loss at the L5 vertebral body. 2. Otherwise no acute injury seen at the abdomen or pelvis. ACT 112: Negative or not required by law. The above report was generated using voice recognition software. It may contain grammatical, syntax or spelling errors. Electronically signed by: Clifton Hopson M.D. 04/21/2024 8:[address] 04/21/24 07:15 CT chest diagnostic wo con CLINICAL HISTORY: fall. TECHNIQUE: Multiaxial CT images of the chest were performed without contrast. A dose lowering technique was utilized adhering to the principles of ALARA. COMPARISON STUDY: Chest x-ray earlier today FINDINGS: There is patchy consolidation throughout the majority of the right lower lobe, a small portion of the right upper lobe, and at the posterior left lung base which could represent pneumonia or pulmonary contusion. There is no pleural effusion or pneumothorax. There is a mass at the left thyroid lobe measuring 8 cm which causes mass effect on the trachea. There is no mediastinal hematoma. No pericardial effusion. No enlarged adenopathy. There are diffuse coronary artery and aortic calcifications. There are mild diffuse degenerative changes at the thoracic spine. There is mild height loss at the T5 and T6 vertebral bodies. No acute osseous findings seen otherwise. IMPRESSION: 1. Bilateral pneumonia versus pulmonary contusions. No pleural effusion or pneumothorax. 2. Mild height loss at the T5 and T6 vertebral bodies of uncertain chronicity. 3. No other acute findings seen at the chest. 3. Large mass at the left thyroid lobe. Thyroid malignancy is not excluded. ACT 112: Positive. There are findings on this exam that require communication between the performing entity and the patient following Patient Test Result Information Act ([place] Act 112) guidelines. Electronically signed by: Clifton Hopson M.D. 04/21/2024 8:25 AM Discharge Plan Visit Data Chief Complaint: Fall Stated Complaint: FALL ED Provider: Neal Colvin Discharge Problem: Pneumonia, Fall, VIKAS (acute kidney injury) Patient Disposition: Being Evaluated by Hospitalist Forms Stand Alone Forms: [facility] [employer] Prescriptions Prescriptions: No Action nitroglycerin [Nitrostat] 0.4 mg tablet, sublingual 0.4 mg Sublingual DIRECTED PRN (Reason: Chest Pain) Qty: 25 3RF Rx Instructions: PLACE ONE TABLET UNDER THE TONGUE EVERY 5 MINUTES FOR UP TO 3 DOSES OVER 15 MINUTES IF NEEDED FOR CHEST PAIN tolterodine 2 mg tablet 2 mg PO BID Qty: 180 1RF isosorbide mononitrate 30 mg tablet extended release 24 hr 30 mg PO QAM aspirin 81 mg Tablet,Delayed Release (Dr/Ec) 81 mg PO QAM cholecalciferol (vitamin D3) [Vitamin D3] 2,000 unit Tablet 2,000 unit PO QAM montelukast 10 mg Tablet 10 mg PO QAM pantoprazole 40 mg tablet,delayed release (DR/EC) 40 mg PO Q OTHER DAY Patient Comments: takes in the am mirtazapine 30 mg Tablet 30 mg PO HS doxycycline hyclate 100 mg Capsule 100 mg PO BID Rx Instructions: Start Date 04/21/24 - End Date 05/01/24 atorvastatin 20 mg tablet 20 mg PO QPM lidocaine 4 % Adhesive Patch,Medicated 1 patch TOPICAL BID Rx Instructions: Apply in the morning remove at HS polyethylene glycol 3350 [Miralax] 17 gram Powder In Packet 17 g PO QAM metoprolol succinate 50 mg tablet extended release 24 hr 50 mg PO QPM Rx Instructions: Hold for SBP<90 or HR<60 metoprolol succinate 100 mg tablet extended release 24 hr 100 mg PO QAM Rx Instructions: Hold for SBP<90 or HR<60 gabapentin 400 mg capsule 400 mg PO TID amlodipine 2.5 mg tablet 2.5 mg PO QAM Rx Instructions: Take 2.5mg w/ 5mg by mouth every morning to equal 7.5mg amlodipine 5 mg tablet 5 mg PO QAM Rx Instructions: Take 5mg w/ 2.5mg by mouth every morning to equal 7.5mg magnesium hydroxide [Milk of Magnesia] 400 mg/5 mL Suspension 2,400 mg PO Q48H PRN (Reason: Constipation) Rx Instructions: Give if no BM for 2 days bisacodyl [Dulcolax (bisacodyl)] 10 mg Suppository 10 mg ND Q48H PRN (Reason: Constipation) Rx Instructions: Give if no results from Milk of Mag buspirone 10 mg tablet 10 mg PO TID candesartan 8 mg tablet 8 mg PO QAM melatonin 1 mg Tablet 2 mg PO QPM [place] Saline Gel [place],Non-Aerosol 1 spray INTRANASAL BID PRN (Reason: Nasal Dryness) quetiapine 25 mg tablet 12.5 mg PO QID cyanocobalamin (vitamin B-12) [Vitamin B-12] 1,000 mcg Tablet 1,000 mcg PO DAILY acetaminophen [Tylenol Ex Str Rapid Release] 500 mg Tablet 1,000 mg PO TID benzonatate [Tessalon Perles] 100 mg Capsule 100 mg PO TID PRN (Reason: Cough) mirtazapine 15 mg tablet 15 mg PO DAILY nystatin 100,000 unit/gram powder 1 applic TOPICAL BID PRN (Reason: Rash/Redness) Rx Instructions: Breast and skin folds oxycodone 5 mg tablet 2.5 mg PO DAILY oxycodone 5 mg tablet 2.5 mg PO Q4H PRN (Reason: Pain) Preparation H Rapid Rlf-Lidocn 5-0.25-14.4-15 % Cream 1 applic TOPICAL QID PRN (Reason: Hemorrhoid pain) Referrals Referrals: Twyla Alfaro [Primary Care Provider] - Discharge Problem: Pneumonia Qualifiers: Pneumonia type: due to unspecified organism Laterality: right Lung location: m iddle lobe of lung Qualified Code(s): J18.9 - Pneumonia, unspecified organism Fall Qualifiers: Encounter type: initial encounter Qualified Code(s): W19.XXXA - Unspecified fall, initial encounter
[2024-04-21 06:49] LABS: Troponin I High Sensitivity 11.9 pg/ml (0-14)
[2024-04-21 06:58] LABS: Thyroid Stimulating Hormone 0.743 uIu/ml (0.300-4.500)
[2024-04-21 07:06] LABS: Partial Thromboplastin Time 28 Seconds (21-31); Prothrombin Time 10.9 Seconds (9.0-12.0)
[2024-04-21] MEDS: cefTRIAXone SODIUM 2,000 MG/50 ML BAG IV STA (07:06)
[2024-04-21 07:07] LABS: Adenovirus PCR Not Detected (NotDetected); Bordetella parapertussis PCR Not Detected (NotDetected); Bordetella pertussis PCR Not Detected (NotDetected); Chlamydia pneumoniae PCR Not Detected (NotDetected); Coronavirus 229E PCR Not Detected (NotDetected); Coronavirus CoV-2 (COVID19)PCR Not Detected (NotDetected); Coronavirus HKU1 PCR Not Detected (NotDetected); Coronavirus NL63 PCR Not Detected (NotDetected); Coronavirus OC43PCR Not Detected (NotDetected); Human Metapneumovirus PCR Not Detected (NotDetected); Influenza A PCR Not Detected (NotDetected); Influenza B PCR Not Detected (NotDetected); Mycoplasma pneumoniae PCR Not Detected (NotDetected); Parainfluenza Virus 1 PCR Not Detected (NotDetected); Parainfluenza Virus 2 PCR Not Detected (NotDetected); Parainfluenza Virus 3 PCR Not Detected (NotDetected); Parainfluenza Virus 4 PCR Not Detected (NotDetected); Respiratory Syncytial VirusPCR Not Detected (NotDetected); Rhinovirus/Enterovirus PCR Not Detected (NotDetected)
[2024-04-21] MEDS ORDERED: VANCOMYCIN CONSULT ACTIVE PRN (07:37)
--- NOTE | 2024-04-21 07:50 | XRay Report ---
EXAM: XR chest 1V portable CLINICAL HISTORY: Weakness. Fell. TECHNIQUE: An X-ray image of the chest is obtained in AP projection. COMPARISON: 01/17/2024 CR. FINDINGS: Pulmonary Parenchyma: Multifocal ill-defined pulmonary infiltrates/airspace shadowing seen in the right upper and mid zones. No evidence of pleural effusion or pleural thickening. Heart and Mediastinum: Heart size and shape are normal. No mediastinal widening or masses. No hilar or mediastinal lymphadenopathy. Bony Thorax: Bony thorax appears intact without fractures or deformities. Soft Tissues: Soft tissues overlying the chest wall are unremarkable. IMPRESSION: 1. Multifocal ill-defined pulmonary infiltrates/airspace shadowing right upper and mid zones. Postinflammatory. Suggest clinical and lab correlation. 2. Comparing the previous x-ray dated 01/17/2024 there is interval progression. Electronically signed by Xuan Noriega 04-21-2024 07:49 AM
--- NOTE | 2024-04-21 08:01 | XRay Report ---
EXAM: XR shoulder RT min 2V routine CLINICAL HISTORY: fall TECHNIQUE: X-ray images of the right shoulder were obtained in anteroposterior (AP) and Y-view projections. COMPARISON: No prior studies available for comparison. FINDINGS: Bone Structure: Bone structure is normal and aligned. No evidence of fracture or dislocation. Humeral head is properly positioned in the glenoid fossa. No osseous lesions or abnormalities identified. Joint Spaces: Glenohumeral and acromioclavicular joint spaces are normal. No evidence of joint effusion or subluxation. Soft Tissues: Soft tissues appear normal and unremarkable. No soft tissue swelling, calcifications, or foreign bodies noted. Additional Findings: No signs of osteoarthritis, bone spurs, lytic or sclerotic lesions. Incidental note made of ill-defined pulmonary infiltrates in the right perihilar region IMPRESSION: 1. No evidence of acute fracture, dislocation, or significant soft tissue abnormalities. 2. Incidental note made of ill-defined pulmonary infiltrates in right perihilar region. Postinflammatory. Suggest clinical correlation. X-ray chest is advised for further evaluation. Disclaimer: A subtle bone abnormality or fracture may not be readily apparent on X-rays, thus clinical correlation and further imaging including follow-up CT, MRI, or follow-up X-rays are advised as needed. Electronically signed by Xuan Noriega 04-21-2024 08:01 AM
--- NOTE | 2024-04-21 08:08 | CT Scan Report ---
CT OF THE CERVICAL SPINE WITHOUT CONTRAST CLINICAL HISTORY: Fall, AMS COMPARISON STUDY: Thyroid ultrasound August 18, 2010. TECHNIQUE: Helical axial images of the cervical spine were obtained without IV contrast. Sagittal a nd coronal reconstructions were viewed. Automated exposure control was utilized for the study. A do se lowering technique was utilized adhering to the principles of ALARA. FINDINGS: There is reversal of the cervical lordosis. No cervical spine fractures are identified. Booth Usher niocervical junction is intact. Moderate multilevel disc space narrowing, endplate osteophytosis and facet arthrosis is present. There is no prevertebral edema. Left lobe multinodular goiter is noted. T his was shown on ultrasound August 18, 2010. Several large left lobe thyroid nodules are present. There is associated rightward deviation of the trachea. IMPRESSION: 1. No acute cervical spine fracture or subluxation. 2. Left lobe thyroid goiter, as shown on ultrasound August 18, 2010. ACT 112: Negative or not required by law. Electronically signed by: Jermain Wiggins M.D. 04/21/2024 8:06 AM
--- NOTE | 2024-04-21 08:23 | CT Scan Report ---
CT head/brain wo con CLINICAL HISTORY: 83 years-old Female with Fall, AMS. Acute head trauma TECHNIQUE: Multiple axial CT images of the head were obtained without contrast. A dose lowering tech nique was utilized adhering to the principles of ALARA. CT DOSE: 3571.99 mGy.cm COMPARISON: Head CT 01/17/2024, brain MRI 04/08/2017 FINDINGS: No acute intracranial hemorrhage, midline shift or mass effect is present. The ventricular system is unremarkable. The basal cisterns are patent. No extra-axial collections are present. There are no fin dings to suggest acute dural sinus thrombosis or acute territorial infarct. There are no calvarial fr actures. A hypodense 2.6 x 1.7 cm posterior parafalcine lesion on image 18 of series 2 is unchanged s buddy MRI of April 08, 2017. This represents a meningioma. Two right middle cranial fossa lesions ar e also unchanged moderate mucosal thickening with air-fluid level within the right maxillary sinus. A nd better seen on previous MRI but likely unchanged. White matter hypodensity suggests small vessel d isease. IMPRESSION: 1. No acute intracranial findings. 2. No acute calvarial fracture. 3. Several meningiomas are redemonstrated, similar in appearance to the MRI exam of 04/08/2017. ACT 112: Negative or not required by law. The above report was generated using voice recognition software. It may contain grammatical, syntax o r spelling errors. Electronically signed by: Mac Avila M.D. 04/21/2024 8:22 AM
--- NOTE | 2024-04-21 08:26 | CT Scan Report ---
CT chest diagnostic wo con CLINICAL HISTORY: fall. TECHNIQUE: Multiaxial CT images of the chest were performed without contrast. A dose lowering techni que was utilized adhering to the principles of ALARA. COMPARISON STUDY: Chest x-ray earlier today FINDINGS: There is patchy consolidation throughout the majority of the right lower lobe, a small port ion of the right upper lobe, and at the posterior left lung base which could represent pneumonia or p ulmonary contusion. There is no pleural effusion or pneumothorax. There is a mass at the left thyroid lobe measuring 8 cm which causes mass effect on the trachea. There is no mediastinal hematoma. No pe ricardial effusion. No enlarged adenopathy. There are diffuse coronary artery and aortic calcificatio ns. There are mild diffuse degenerative changes at the thoracic spine. There is mild height loss at t he T5 and T6 vertebral bodies. No acute osseous findings seen otherwise. IMPRESSION: 1. Bilateral pneumonia versus pulmonary contusions. No pleural effusion or pneumothorax. 2. Mild height loss at the T5 and T6 vertebral bodies of uncertain chronicity. 3. No other acute findings seen at the chest. 3. Large mass at the left thyroid lobe. Thyroid malignancy is not excluded. ACT 112: Positive. There are findings on this exam that require communication between the performing entity and the patient following Patient Test Result Information Act ([place] Act 112) guidelines. Electronically signed by: Clifton Hopson M.D. 04/21/2024 8:25 AM
--- NOTE | 2024-04-21 08:31 | CT Scan Report ---
ABDOMEN AND PELVIS CT WITHOUT CONTRAST CT DOSE: 3572 HISTORY: fall TECHNIQUE: Multiaxial CT images of the abdomen and pelvis were performed without contrast. A dose lo wering technique was utilized adhering to the principles of ALARA. COMPARISON STUDY: None FINDINGS: There are diffuse coronary artery calcifications. ABDOMEN: Gallbladder is surgically absent. Liver, spleen, pancreas, kidneys, and adrenal glands have an unremarkable non-IV contrast appearance. There are diffuse atherosclerotic calcifications. No abdo dangelo aortic aneurysm. Pelvis: Uterus is absent. No adnexal mass. Urinary bladder is nondistended. No bowel inflammation or obstruction. No free fluid, free air, or hematoma seen. There are small bilateral fat-containing ingu inal hernias. No enlarged adenopathy. Osseous structures: There is mild height loss at the L5 vertebral body, possibly chronic. No other fr acture seen at the visualized osseous structures. There is diffuse lumbar degenerative disc disease. IMPRESSION: 1. Possibly chronic height loss at the L5 vertebral body. 2. Otherwise no acute injury seen at the abdomen or pelvis. ACT 112: Negative or not required by law. The above report was generated using voice recognition software. It may contain grammatical, syntax o r spelling errors. Electronically signed by: Clifton Hopson M.D. 04/21/2024 8:30 AM
[2024-04-21 08:47] LABS: Appearance Urine Clear (Clear); Bacteria Urine Automated None Seen (None Seen); Bilirubin Urine Negative (Negative); Blood Urine Negative (Negative); Color Urine Yellow; Epithelial Cell Urine Auto 0-2 /hpf (0-2); Glucose Urine UA Negative (Negative); Ketones Urine Trace (Negative); Leukocyte Esterase Urine Negative (Negative); Nitrite Urine Negative (Negative); Protein Urine 1+ (Negative); Specific Gravity Urine 1.028 (1.000-1.030); Urobilinogen Urine Negative (Negative); WBC Urine Automated 0-5 /hpf (0-5); pH Urine 6.5 (4.5-7.5)
--- NOTE | 2024-04-21 09:02 | Electrocardiogram Report ---
Test Reason : Blood Pressure : */* mmHG Vent. Rate : 84 BPM Atrial Rate : 84 BPM P-R Int : 156 ms QRS Dur : 92 ms QT Int : 372 ms P-R-T Axes : 37 -16 20 degrees QTcB Int : 439 ms Normal sinus rhythm Minimal voltage criteria for LVH, may be normal variant ( R in aVL ) Borderline ECG When compared with ECG of 17-Jan-2024 10:48, No significant change was found Confirmed by Angel Hammonds ([id number]) on 04/21/2024 9:02:06 AM Referred By: Confirmed By: Angel Hammonds
[2024-04-21] MEDS: VANCOMYCIN HCL 1,500 MG in SODIUM CHLORIDE 0.9% 500 ML IV ONE (09:13)
[2024-04-21] MEDS: SODIUM CHLORIDE 0.9% IV ONE (09:30)
[2024-04-21] MEDS: VANCOMYCIN HCL IV ONE (09:30)
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
[2024-04-21] MEDS: LACTATED RINGER'S 1,000 ML IV SCH (10:48)
[2024-04-21] MEDS ORDERED: ALUMINUM/MAGNESIUM SUSP 30 ML UDC PO PRN (15:49)
[2024-04-21] MEDS ORDERED: ACETAMINOPHEN 325 MG TAB PO PRN (15:49)
[2024-04-21] MEDS ORDERED: ONDANSETRON INJ 2 MG/ML 2 ML VIAL IV PRN (15:49)
[2024-04-21] MEDS ORDERED: MAGNESIUM HYDROXIDE SUSP 30 ML UDC PO PRN (15:49)
[2024-04-21] MEDS ORDERED: BENZONATATE 100 MG CAPSULE PO PRN (15:49)
[2024-04-21] MEDS ORDERED: MELATONIN 3 MG TAB PO PRN (15:49)
[2024-04-21] MEDS: ALBUT/IPRATROP 3MG/0.5MG NEB 3 ML VIAL NEB SCH (16:41)
[2024-04-21] MEDS: busPIRone 5 MG TAB PO SCH (17:27)
[2024-04-21] MEDS: PANTOprazole 40 MG TAB PO SCH (17:28)
[2024-04-21] MEDS: GABAPENTIN 400 MG CAP PO SCH (17:28)
[2024-04-21] MEDS: QUEtiapine FUMARATE 25 MG TABLET PO SCH (18:32)
[2024-04-21] MEDS: guaiFENesin 600 MG TABCR PO SCH (18:33)
[2024-04-21] MEDS: METOPROLOL SUCC 50MG EXT REL TAB PO SCH (19:05)
[2024-04-21] MEDS: MIRTAZAPINE TAB 15 MG TAB PO SCH ×2 (19:06→21:31)
[2024-04-21] MEDS: POLYETHYLENE (MIRALAX) 17 GM PACK PO SCH (19:07)
[2024-04-21] MEDS: SODIUM CHLOR 7% 4 ML NEB NEB STA (19:45)
[2024-04-21] MEDS: ATORVASTATIN 20 MG TAB PO SCH (21:31)
--- NOTE | 2024-04-21 21:31 | XRay Report ---
EXAM: XR chest 1V portable CLINICAL HISTORY: hypoxia. TECHNIQUE: An X-ray image of the chest is obtained in AP projection. COMPARISON: prior 04/21/2024. FINDINGS: pulmonary Parenchyma: l ill-defined pulmonary infiltrates/airspace shadowing seen in the right upper and mid zones. No evidence of pleural effusion or pleural thickening. Heart and Mediastinum: still noted the apparent widening of the mediastinum and atherosclerotic changes of the aorta Bony Thorax: Bony thorax appears intact without fractures or deformities. Soft Tissues: Soft tissues overlying the chest wall are unremarkable. IMPRESSION: 1. No time interval changes the ill-defined pulmonary infiltrates/airspace shadowing seen in the right upper and mid zones suggestive of infectious process ,clinical correlation is recommended. 2. still noted the apparent widening of the mediastinum and atherosclerotic changes of the aorta. 3. further assessment by CT is recommended. Electronically signed by Xuan Noriega 04-21-2024 9:31 PM
[2024-04-21] MEDS: DOXYCYCLINE HYCLATE 100 MG in DEXTROSE 5% MINI-B 100 ML IV SCH (21:32)
[2024-04-22 06:28] LABS: Basophils # (auto) 0.03 K/uL (0.00-0.20); Basophils % (auto) 0.3 %; Eosinophils # (auto) 0.09 K/uL (0.00-0.50); Hematocrit (blood only) 33.5 % (37.0-47.0); Hemoglobin 10.7 g/dl (12.0-16.0); Immature Granulocytes # (auto) 0.06 K/uL (0.01-0.20); Immature Granulocytes % (auto) 0.7 %; Lymphocytes # (auto) 0.74 K/uL (1.20-3.40); Lymphocytes % (auto) 8.2 %; Mean Corpuscular Hemoglobin 28.8 pg (25.0-34.0); Mean Corpuscular Hgb Conc 31.9 g/dL (32.0-36.0); Mean Corpuscular Volume 90.3 fL (80.0-100.0); Mean Platelet Volume 10.8 fL (9.4-12.4); Monocytes # (auto) 1.05 K/uL (0.11-0.59); Monocytes % (auto) 11.6 %; Neutrophils # (auto) 7.06 K/uL (1.40-6.50); Neutrophils % (auto) 78.2 %; Platelet Count 201 K/uL (130-400); RDW Coefficient of Variation 13.8 % (11.5-14.5); RDW Standard Deviation 44.9 fL (36.4-46.3); Red Blood Count 3.71 M/uL (4.20-5.40); White Blood Count 9.03 K/ul (4.8-10.8)
[2024-04-22 06:40] LABS: BUN Creatinine Ratio 26.7 (10-20); Creatinine Clr Calc Pharmacy 35.2 ml/min
[2024-04-22] MEDS: cefTRIAXone SODIUM 2,000 MG/50 ML BAG IV SCH (07:56)
[2024-04-22] MEDS: amLODIPine BESYLATE 5 MG TAB PO SCH ×2 (07:57→07:58)
[2024-04-22] MEDS: ASPIRIN 81 MG ECTAB PO SCH (07:57)
[2024-04-22] MEDS: CHOLECALCIFEROL 25 MCG (1000 UNITS) TAB PO SCH (08:00)
[2024-04-22] MEDS: CYANOCOBALAMIN (B-12) 500 MCG TABLET PO SCH (08:00)
[2024-04-22] MEDS: ISOSORBIDE MONO EXTENDED REL 30 MG TABCR PO SCH (08:01)
[2024-04-22] MEDS: MONTELUKAST SODIUM 10 MG TABLET PO SCH (08:01)
[2024-04-22] MEDS: SODIUM CHLOR 7% 4 ML NEB NEB SCH (08:13)
[2024-04-22] MEDS ORDERED: oxyCODONE HCL IR 5 MG TAB (IMMEDIATE RELEASE) PO SCH (09:00)
[2024-04-22] MEDS: ENOXAPARIN INJ 30 MG/0.3 ML SYR SQ SCH (09:24)
--- NOTE | 2024-04-22 21:33 | Hospitalist Progress Note ---
Date of Service April 22, 2024 Assessment & Plan (1) Multilobar lung infiltrate: Plan: Acute multilobar CAP - Admit to med/surg unit - Diabetic diet - VS per unit protocol - Received dose of ceftriaxone and vancomycin in ED, will continue ceftriaxone + doxycycline c/w CAP treatment - Duonebs QID routine and q2 prn dyspnea/wheezing - Mucinex 600mg BID - Supplemental O2 as noted below for hypoxemia, titrate to maintain sat >92% (2) VIKAS (acute kidney injury): Plan: Acute, baseline creatinine 1.1-1.3 - Received 2L of NSS in the ER - Start on LR at 80 ml/hr x 24 hours - Trend renal fxn in AM with BMP - Hold ARB in setting of VIKAS (3) Hypoxemia requiring supplemental oxygen: Plan: Acute, secondary to multifocal PNA - Continue supplemental O2 as noted above and titrate to maintain sat >92% - Currently requiring 2L (4) Leukocytosis: Plan: Acute, secondary to multifocal PNA - WBC 13.51 with neutrophilic predominance - Lactate of 2.8 and PCT 13.40 - Initiate IV abx, blood culture ordered x1 and pending - Trend wbc count with CBC w/ diff in AM and repeat PCT to gauge pt response to therapy Plan Stable chronic medical problems: 1. DMT2 - diet controlled, last a1c checked earlier this month and WNL at 6.5%, no need for insulin coverage 2. HTN - controlled, continue amlodipine, toprol xl, and HOLD candesartan in setting of VIKAS 3. Depression/anxiety - chronic, continue mirtazapine and buspirone 4. GERD - chronic, continue protonix 5. CAD - continue asa, imdur 6. HLD - chronic, continue atorvastatin, but would consider d/c'ing given advanced age-defer to pcp. 7. Dementia - chronic, continue seroquel, consider changing dosing to 25mg BID to decrease pill burden and frequency of social media analyst The above has been discussed with Dr. Trav Rod who will also see and evaluate this patient. Further orders may be implemented as clinically warranted by attending. Admission and Anticipated Discharge Date Admission Date: April 21, 2024 Subjective "I feel a lot better than yesterday. No complaints today." Review of Systems Constitutional: Negative for antecedent/coincident fevers, chills, diaphoresis, cough, wheeze, sore throat, hemoptysis, chest pains, palpitations, pleurisy, nausea, vomiting, diarrhea, abdominal pain, pelvic pain, hematemesis, hematochezia, melena, hematuria, dysuria, frequency, urgency, headaches, dizziness, lightheadedness, visual changes, hearing changes, weakness, falls, syncope, trauma, travel history, sick contacts, or food/drug ingestions novel or new. All other review of systems are reported as negative by the patient on 10/2024. Physical Exam Constitutional: General: Comfortable, coherent, cooperative. Wide awake and alert. Not confused, lethargic, or obtunded. Patient speaks in complete, fluent, and articulate sentences without pause, interruption, cough, or wheeze. HEENT: NC/AT. EOMI, PERRL. No nystagmus, gaze paresis, anisocoria, miosis, mydriasis, hyphema, chemosis, scleral icterus, conjunctivitis, or pterygium. No otorrhea, no rhinorrhea. No pharyngeal discharge or erythema. Neck: Supple, no stridor, bruit, goiter, or hepatojugular reflux. Jugular venous pressure is estimated to be 8 cm above the sternal angle of Hugo, which is typically 5 cm above the level of the right atrium. Hence, there is no jugular venous distention noted on 04/22/2024. Lymphatics: No pre-post auricular, anterior/posterior cervical, supraclavicular/infraclavicular, axillary, epitrochlear, or inguinal adenopathy. Chest: Symmetric rise and fall with respirations. Non-tender to palpation. Heart: RRR, S1 and S2 noted. No S3 or S4 summation gallop noted. No tripartite friction rub. Grade II/ early systolic murmur @ LLSB without radiation to the carotids, axilla, or back, and which remains invariant in regards to the respiratory cycle. Lungs: Coarse breath sounds bilaterally. No audible expiratory wheeze, egophony, pectoriloquy, increase in tactile fremitus, or flatness/dullness to percussion at the bases. Abdomen: Soft, non-tender, non-distended. No rebound, guarding, Harper's sign, or organomegaly. Bowel sounds auscultated in all 4 quadrants. Extremities: No clubbing, cyanosis, or edema. 2+ pedal pulses bilaterally. Skin: Dry skin with skin tenting, but no delay in capillary refill time > 2 seconds. No exanthem or enanthem or decubitus ulcer. Neurology: Alert and oriented in regards to person, place, time, and situation. DTR+ and symmetric. 5/5 motor strength in all 4 extremities, both proximally and distally. No myoclonus, tremors, or tics. Urology: No chowdary catheter. No urethral discharge. Psychiatry: Appropriate affect. Smiles occasionally. No homicidal/suicidal ideation Results & Data Results & Data Vital Signs (Past 12 Hours) Vital Signs Temp Pulse Resp BP Pulse Ox O2 Del Method O2 Flow Rate 04/22/24 21:14 36.4 C L 139/73 04/22/24 20:25 81 18 95 Nasal Cannula 3 04/22/24 17:01 37.1 C 88 16 144/73 H 92 Nasal Cannula 3 04/22/24 15:08 76 18 97 Nasal Cannula 4 04/22/24 11:19 76 18 96 Nasal Cannula 4 PG Care Time/CCT Total # of Minutes Spent Total Time Spent with Patient: Total time spent is greater than 50% in coordination of care (as documented) at patient's floor/unit and/or counseling patient: Coding Level of Care Code 05099 SUB INP/OBS CARE 2/35MIN Diagnoses Multilobar lung infiltrate R91.8 VIKAS (acute kidney injury) N17.9 Hypoxemia requiring supplemental oxygen R09.02; Z99.81 Leukocytosis D72.829
[2024-04-23 06:10] LABS: Basophils # (auto) 0.03 K/uL (0.00-0.20); Basophils % (auto) 0.4 %; Eosinophils # (auto) 0.16 K/uL (0.00-0.50); Eosinophils % (auto) 2.1 %; Hematocrit (blood only) 32.5 % (37.0-47.0); Hemoglobin 10.6 g/dl (12.0-16.0); Immature Granulocytes # (auto) 0.05 K/uL (0.01-0.20); Immature Granulocytes % (auto) 0.7 %; Lymphocytes # (auto) 0.78 K/uL (1.20-3.40); Lymphocytes % (auto) 10.3 %; Mean Corpuscular Hemoglobin 29.2 pg (25.0-34.0); Mean Corpuscular Hgb Conc 32.6 g/dL (32.0-36.0); Mean Corpuscular Volume 89.5 fL (80.0-100.0); Mean Platelet Volume 10.1 fL (9.4-12.4); Monocytes # (auto) 0.78 K/uL (0.11-0.59); Monocytes % (auto) 10.3 %; Neutrophils # (auto) 5.79 K/uL (1.40-6.50); Neutrophils % (auto) 76.2 %; Platelet Count 220 K/uL (130-400); RDW Coefficient of Variation 13.3 % (11.5-14.5); RDW Standard Deviation 44.3 fL (36.4-46.3); Red Blood Count 3.63 M/uL (4.20-5.40); White Blood Count 7.59 K/ul (4.8-10.8)
[2024-04-23 06:29] LABS: Creatinine Clr Calc Pharmacy 38.6 ml/min
[2024-04-23] MEDS ORDERED: ALBUT/IPRATROP 3MG/0.5MG NEB 3 ML VIAL NEB PRN (10:11)
--- NOTE | 2024-04-23 15:39 | Hospitalist Progress Note ---
Date of Service April 23, 2024 Assessment & Plan (1) Acute hypoxic respiratory failure: Plan: cf., O2 sat 90% on room air (04/21/2024, 4:42pm). cf., O2 sat 82% on 2 liters/minute via nasal cannula (04/21/2024, 7:34pm) in patient who is oxygen-naive at the closed dementia unit @ [facility] for the past 1 year, on the [facility] ([place], [place])). Etiology of acute hypoxic respiratory failure is due to acute multi-lobar CAP ((as noted by acute RUL/RML infiltrates on 04/21/2024, 5:55am portable CXR) and as noted by acute RUL/RLL/LLL infiltrates on 04/21/2024, 7:15am CT chest without contrast). Patient has tested positive for MRSA nares screen (04/22/2024, 4:10am) with respiratory pathogen PCR panel (04/21/2024, 6:04am) negative. Patient was started on ceftriaxone 2g IV x 1 dose (04/21/2024, 6:43am) and vancomycin 1.5g IV x 1 dose (04/21/2024, 7:45am) in [facility] ER. Patient continues with ceftriaxone 2g IV daily (04/22/2024, 8:00am) and doxycycline 100mg IV q12 (04/21/2024, 9:00pm) in [facility] Tele bed #[id number]. Patient also continues with duonebs bid and duonebs q6 prn SOB/wheeze in [facility] Tele bed #[id number]. I will check vitals, chest exam, WBC w/diff, procalcitonin level, and lactic acid level in the 04/25/2024 am. cf., WBC 13.51 (04/21/2024, 6:05am). cf., WBC 9.03 (04/22/2024, 5:34am). cf., WBC 7.59 (04/23/2024, 5:49am). cf., procalcitonin #1 13.40 ng/mL (04/21/2024, 6:05am). cf., procalcitonin #2 6.93 ng/mL (04/22/2024, 5:34am). cf., procalcitonin #3 3.98 ng/mL (04/23/2024, 5:49am). cf., lactic acid #1 2.7 mmol/L (04/21/2024, 6:18am). cf., lactic acid #2 2.8 mmol/L (04/21/2024, 8:08am). cf., lactic acid #3 1.0 mmol/L (04/22/2024, 9:08am). cf., lactic acid #4 1.0 mmol/L (04/23/2024, 5:49am). (2) Multilobar lung infiltrate: Plan: See bullet #1 above. (3) VIKAS (acute kidney injury): Plan: RESOLVED with IV fluid rehydration utilizing 2 liters of 0.9% NS @ 999 mL/hr (04/21/2024, 6:30am, 7:38am) followed by 1 liter of lactated Ringers @ 80 mL/hr (04/21/2024, 10:45am) and holding off patient's home-scheduled candesartan 8mg PO qam. cf., creatinine 1.94 mg/dL (04/21/2024, 6:05am). cf., creatinine 1.05 mg/dL (04/22/2024, 5:34am). cf., creatinine 0.96 mg/dL (04/23/2024, 5:49am). cf., baseline creatinine range, 0.95 - 1.18 (05/08/2022 - 12/16/2023). Etiology of acute kidney injury was most probably due to acute dehydration, which in turn, was due to increased insensible losses due to perspiration and respiration, due to acute multi-lobar CAP. Plan Stable chronic medical problems: 1. DMT2 - diet controlled, last a1c checked earlier this month and WNL at 6.5%, no need for insulin coverage 2. HTN - controlled, continue amlodipine, toprol xl, and HOLD candesartan in setting of VIKAS 3. Depression/anxiety - chronic, continue mirtazapine and buspirone 4. GERD - chronic, continue protonix 5. CAD - continue asa, imdur 6. HLD - chronic, continue atorvastatin, but would consider d/c'ing given advanced age-defer to pcp. 7. Dementia - chronic, no behavioral disturbances; continue seroquel, consider changing dosing to 25mg BID to decrease pill burden and frequency of center medical and lab director 8. DNR/DNI, living in the closed dementia unit @ [facility] for the past 1 year, on the [facility] ([place], [place])). I anticipate that this patient will remain in [facility] for the next 2 midnights in order to convalesce from acute hypoxic respiratory failure due to acute multi- lobar CAP, before patient can be discharged back to the closed dementia unit @ [facility] for the past 1 year, on the [facility] ([place], [place])). Admission and Anticipated Discharge Date Admission Date: April 21, 2024 Subjective "I feel a lot better than yesterday. No complaints today." Review of Systems Constitutional: Positive for confusion. Negative for antecedent/coincident fevers, chills, diaphoresis, cough, wheeze, sore throat, hemoptysis, chest pains, palpitations, pleurisy, nausea, vomiting, diarrhea, abdominal pain, pelvic pain, hematemesis, hematochezia, melena, hematuria, dysuria, frequency, urgency, headaches, dizziness, lightheadedness, visual changes, hearing changes, weakness, falls, syncope, trauma, travel history, sick contacts, or food/drug ingestions novel or new. All other review of systems are reported as negative by the patient on 04/23/2024. Physical Exam Constitutional: General: Comfortable, coherent, cooperative. Wide awake and alert. 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 Patient speaks in complete, fluent, articulate, and non-sensical sentences without pause, interruption, cough, or wheeze. HEENT: NC/AT. EOMI, PERRL. No nystagmus, gaze paresis, anisocoria, miosis, mydriasis, hyphema, chemosis, scleral icterus, conjunctivitis, or pterygium. No otorrhea, no rhinorrhea. No pharyngeal discharge or erythema. Neck: Supple, no stridor, bruit, goiter, or hepatojugular reflux. Jugular venous pressure is estimated to be 8 cm above the sternal angle of Hugo, which is typically 5 cm above the level of the right atrium. Hence, there is no j ugular venous distention noted on 04/23/2024. Lymphatics: No pre-post auricular, anterior/posterior cervical, supraclavicular/infraclavicular, axillary, epitrochlear, or inguinal adenopathy. Chest: Symmetric rise and fall with respirations. Non-tender to palpation. Heart: RRR, S1 and S2 noted. No S3 or S4 summation gallop noted. No tripartite friction rub. Grade II/ early systolic murmur @ LLSB without radiation to the carotids, axilla, or back, and which remains invariant in regards to the respiratory cycle. Lungs: Coarse breath sounds bilaterally. No audible expiratory wheeze, egophony, pectoriloquy, increase in tactile fremitus, or flatness/dullness to percussion at the bases. Abdomen: Soft, non-tender, non-distended. No rebound, guarding, Harper's sign, or organomegaly. Bowel sounds auscultated in all 4 quadrants. Extremities: No clubbing, cyanosis, or edema. 2+ pedal pulses bilaterally. Skin: Dry skin with skin tenting, but no delay in capillary refill time > 2 seconds. No exanthem or enanthem or decubitus ulcer. Neurology: Alert and oriented in regards to person, place, time, and situation. DTR+ and symmetric. 5/5 motor strength in all 4 extremities, both proximally and distally. No myoclonus, tremors, or tics. Urology: No chowdary catheter. No urethral discharge. Psychiatry: Appropriate affect. Smiles occasionally. No homicidal/suicidal ideation Results & Data Results & Data Vital Signs (Past 12 Hours) Vital Signs Temp Pulse Resp BP Pulse Ox Pulse Ox Pulse Ox 04/23/24 13:36 90 95 04/23/24 08:32 37.2 C 91 H 18 129/78 93 04/23/24 07:59 96 H 16 92 Pulse Ox O2 Del Method O2 Flow Rate O2 Flow Rate O2 Flow Rate O2 Flow Rate 04/23/24 13:36 88 L 2 2 0 04/23/24 08:32 Nasal Cannula 2 04/23/24 07:59 Room Air PG Care Time/CCT Total # of Minutes Spent Total Time Spent with Patient: Total time spent is greater than 50% in coordination of care (as documented) at patient's floor/unit and/or counseling patient: Coding Level of Care Code 19852 SUB INP/OBS CARE 2/35MIN Diagnoses Acute hypoxic respiratory failure J96.01 Multilobar lung infiltrate R91.8 VIKAS (acute kidney injury) N17.9
[2024-04-23] MEDS: ALBUT/IPRATROP 3MG/0.5MG NEB 3 ML VIAL NEB SCH (19:34)
--- NOTE | 2024-04-23 21:27 | Ultrasound Report ---
Exam(s): US THYROID EXAM: US Soft Tissues Head and Neck, Thyroid CLINICAL HISTORY: Reason for exam: 8 cm L thyroid gen (04/21/2024, 7:15am CT chest). TECHNIQUE: Real-time ultrasound scan of the thyroid gland and soft tissues of the neck with image documentation. COMPARISON: No relevant prior studies available. FINDINGS: Left thyroid lobe: Left lobe of the thyroid gland has heterogeneous echogenicity, measuring 10.6 cm in length. Right thyroid lobe: Right lobe of the thyroid gland measures 2.7 cm in length. No nodule seen in the right lobe. Isthmus: The isthmus contains a 2.3 x 1.2 x 4 cm heterogenous solid and cystic nodule. No calcification. IMPRESSION: 1. Markedly enlarged left lobe of the thyroid gland demonstrating heterogeneous echogenicity 2. 4 cm diameter heterogenous nodule in the isthmus Electronically signed by: Ab Gutierrez MD 04/23/24 21:26 PM
[2024-04-24 07:31] LABS: Calcium 8.9 mg/dl (8.6-10.3); Potassium 3.7 mmol/L (3.5-5.1)
[2024-04-24 07:36] LABS: BUN Creatinine Ratio 18.2 (10-20); Creatinine Clr Calc Pharmacy 42.1 ml/min
[2024-04-24] MEDS: ENOXAPARIN INJ 40 MG/0.4 ML SYR SQ SCH (07:46)
--- NOTE | 2024-04-24 12:19 | Hospitalist Progress Note ---
Date of Service April 24, 2024 Assessment & Plan (1) Multilobar lung infiltrate: Plan: Chest x-ray showed evidence of multilobar lung infiltrate Currently on IV ceftriaxone and doxycycline Patient much clinically improved Procalcitonin is trending down (2) Acute hypoxic respiratory failure: Plan: Secondary to multilobar pneumonia Wean oxygen as tolerated Currently on 2 L oxygen through nasal cannula (3) VIKAS (acute kidney injury): Plan: VIKAS is now resolved (4) Thyroid mass: Plan: An incidental 8 cm mass was found on the thyroid However patient is currently euthyroid, TSH T3 and T4 all within normal limits Plan is outpatient follow-up with PCP Plan Stable chronic medical problems: 1. DMT2 - diet controlled, last a1c checked earlier this month and WNL at 6.5%, no need for insulin coverage 2. HTN - controlled, continue amlodipine, toprol xl, and HOLD candesartan in setting of VIKAS 3. Depression/anxiety - chronic, continue mirtazapine and buspirone 4. GERD - chronic, continue protonix 5. CAD - continue asa, imdur 6. HLD - chronic, continue atorvastatin, but would consider d/c'ing given advanced age-defer to pcp. 7. Dementia - chronic, no behavioral disturbances; continue seroquel, consider changing dosing to 25mg BID to decrease pill burden and frequency of director multimedia 8. DNR/DNI, living in the closed dementia unit @ [facility] for the past 1 year, on the [facility] ([place], [place])). Hopefully discharge back to [facility] in next 24 to 48 hours Admission and Anticipated Discharge Date Admission Date: April 21, 2024 Subjective Patient seen and examined today, feels overall better Review of Systems Review of Systems: All systems reviewed are negative, apart from the ones contained in the history. Physical Exam Physical Exam: The patient is awake, alert and oriented 3, well developed and well nourished, normocephalic and atraumatic, lying in bed and in no acute distress. HEENT--PERRL, EOMI, mucous membranes and oropharynx mildly dry Neck--supple. No JVD. No bruits. Thyroid normal, trachea midline, no adenopathy. Heart--normal S1 and S2. No murmurs, rubs or gallops. Lungs--Reduced and on auscultation Abdomen--normal bowel sounds and soft. Extremities--no cyanosis or clubbing. No edema. Dermatologic--normal skin turgor, normal color, no abnormal lymph nodes, no rash. Neurologic--cranial nerves II through XII grossly intact. Rheumatologic--normal range of motion. Psychiatric--normal affect. Results & Data Results & Data Vital Signs (Past 12 Hours) Vital Signs Temp Pulse Resp BP Pulse Ox O2 Del Method O2 Flow Rate 04/24/24 11:34 96 Nasal Cannula 2 04/24/24 10:50 92 Nasal Cannula 2 04/24/24 10:50 84 L Room Air 04/24/24 07:51 Nasal Cannula 2 04/24/24 07:25 84 18 96 Nasal Cannula 2 04/24/24 07:13 99.5 F 88 18 138/79 100 Room Air PG Care Time/CCT Total # of Minutes Spent Total Time Spent with Patient: Total time spent is greater than 50% in coordination of care (as documented) at patient's floor/unit and/or counseling patient: Coding Level of Care Code 63480 SUB INP/OBS CARE 2/35MIN Diagnoses Multilobar lung infiltrate R91.8 Acute hypoxic respiratory failure J96.01 VIKAS (acute kidney injury) N17.9 Thyroid mass E07.9 Time Spent (min) 35
[2024-04-24] MEDS: DOXYCYCLINE HYCLATE 100 MG CAP PO SCH (20:50)
[2024-04-25 08:52] LABS: Hematocrit (blood only) 34.4 % (37.0-47.0); Hemoglobin 11.1 g/dl (12.0-16.0); Mean Corpuscular Hemoglobin 28.5 pg (25.0-34.0); Mean Corpuscular Hgb Conc 32.3 g/dL (32.0-36.0); Mean Corpuscular Volume 88.4 fL (80.0-100.0); Mean Platelet Volume 9.5 fL (9.4-12.4); Platelet Count 242 K/uL (130-400); RDW Coefficient of Variation 13.1 % (11.5-14.5); RDW Standard Deviation 42.1 fL (36.4-46.3); Red Blood Count 3.89 M/uL (4.20-5.40); White Blood Count 8.51 K/ul (4.8-10.8)
[2024-04-25 09:11] LABS: BUN Creatinine Ratio 15.1 (10-20); Calcium 9.2 mg/dl (8.6-10.3); Creatinine Clr Calc Pharmacy 39.8 ml/min; Potassium 3.7 mmol/L (3.5-5.1)
--- NOTE | 2024-04-25 11:12 | Hospitalist Progress Note ---
Date of Service April 25, 2024 Assessment & Plan (1) Multilobar lung infiltrate: Plan: Acute multilobar CAP -X ray suggests multilobar pna - Received dose of ceftriaxone and vancomycin in ED, will continue ceftriaxone + doxycycline c/w CAP treatment - Duonebs QID routine and q2 prn dyspnea/wheezing - Mucinex 600mg BID - Supplemental O2 as noted below for hypoxemia, titrate to maintain sat >92% (2) VIKAS (acute kidney injury): Plan: Acute, baseline creatinine 1.1-1.3 - Received 2L of NSS in the ER - Start on LR at 80 ml/hr x 24 hours - Trend renal fxn in AM with BMP - Hold ARB in setting of VIKAS (3) Hypoxemia requiring supplemental oxygen: Plan: Acute, secondary to multifocal PNA - Continue supplemental O2 as noted above and titrate to maintain sat >92% - Currently requiring 2L (4) Leukocytosis: Plan: Acute, secondary to multifocal PNA - WBC 13.51 with neutrophilic predominance - Lactate of 2.8 and PCT 13.40 - Initiate IV abx, blood culture ordered x1 and pending - Trend wbc count with CBC w/ diff in AM and repeat PCT to gauge pt response to therapy (5) Thyroid mass: Plan: CT chest and Us show an 8cm mass in the thyroid TSH, T3, T4 all wnl, patient is euthyroid will follow up with PCP outpatient Plan Stable chronic medical problems: 1. DMT2 - diet controlled, last a1c checked earlier this month and WNL at 6.5%, no need for insulin coverage 2. HTN - controlled, continue amlodipine, toprol xl, and HOLD candesartan in setting of VIKAS 3. Depression/anxiety - chronic, continue mirtazapine and buspirone 4. GERD - chronic, continue protonix 5. CAD - continue asa, imdur 6. HLD - chronic, continue atorvastatin, but would consider d/c'ing given advanced age-defer to pcp. 7. Dementia - chronic, continue seroquel, consider changing dosing to 25mg BID to decrease pill burden and frequency of front office medical assistant plan is to d/c to [facility] pending auth Admission and Anticipated Discharge Date Admission Date: April 21, 2024 Subjective Patient seen and examined today, feels overall better Review of Systems Review of Systems: All systems reviewed are negative, apart from the ones contained in the history. Physical Exam Physical Exam: The patient is awake, alert and oriented 3, well developed and well nourished, normocephalic and atraumatic, lying in bed and in no acute distress. HEENT--PERRL, EOMI, mucous membranes and oropharynx mildly dry Neck--supple. No JVD. No bruits. Thyroid normal, trachea midline, no adenopathy. Heart--normal S1 and S2. No murmurs, rubs or gallops. Lungs--Reduced and on auscultation Abdomen--normal bowel sounds and soft. Extremities--no cyanosis or clubbing. No edema. Dermatologic--normal skin turgor, normal color, no abnormal lymph nodes, no rash. Neurologic--cranial nerves II through XII grossly intact. Rheumatologic--normal range of motion. Psychiatric--normal affect. Results & Data Results & Data Vital Signs (Past 12 Hours) Vital Signs Temp Pulse Resp BP Pulse Ox O2 Del Method O2 Flow Rate 04/25/24 08:45 94 Nasal Cannula 2 04/25/24 08:45 90 Room Air 04/25/24 08:00 Room Air 04/25/24 07:28 99.1 F 94 H 18 147/74 H 97 Nasal Cannula 04/25/24 07:07 95 H 18 96 Nasal Cannula 1 PG Care Time/CCT Total # of Minutes Spent Total Time Spent with Patient: Total time spent is greater than 50% in coordination of care (as documented) at patient's floor/unit and/or counseling patient: Coding Level of Care Code 29534 SUB INP/OBS CARE 2/35MIN Diagnoses Multilobar lung infiltrate R91.8 VIKAS (acute kidney injury) N17.9 Hypoxemia requiring supplemental oxygen R09.02; Z99.81 Leukocytosis D72.829 Thyroid mass E07.9 Time Spent (min) 35
[2024-04-26 08:19] VITALS: RESP 14
--- NOTE | 2024-04-26 11:43 | Hospitalist Progress Note ---
Date of Service April 26, 2024 Assessment & Plan (1) Multilobar lung infiltrate: Plan: - continue ceftriaxone + doxycycline c/w CAP treatment - Duonebs QID routine and q2 prn dyspnea/wheezing - Mucinex 600mg BID (2) VIKAS (acute kidney injury): Plan: Acute, baseline creatinine 1.1-1.3 (3) Hypoxemia requiring supplemental oxygen: Plan: Acute, secondary to multifocal PNA - Continue supplemental O2 as noted above and titrate to maintain sat >92% - Currently requiring 2L (4) Leukocytosis: Plan: Acute, secondary to multifocal PNA -resolved (5) Thyroid mass: Plan: CT chest and Us show an 8cm mass in the thyroid TSH, T3, T4 all wnl, patient is euthyroid will follow up with PCP outpatient Plan Stable chronic medical problems: 1. DMT2 - diet controlled, last a1c checked earlier this month and WNL at 6.5%, no need for insulin coverage 2. HTN - controlled, continue amlodipine, toprol xl, and HOLD candesartan in setting of VIKAS 3. Depression/anxiety - chronic, continue mirtazapine and buspirone 4. GERD - chronic, continue protonix 5. CAD - continue asa, imdur 6. HLD - chronic, continue atorvastatin, but would consider d/c'ing given advanced age-defer to pcp. 7. Dementia - chronic, continue seroquel, consider changing dosing to 25mg BID to decrease pill burden and frequency of medical assistant dermatology plan is to d/c to [facility] pending auth Admission and Anticipated Discharge Date Admission Date: April 21, 2024 Subjective No events overnight. Pt resting comfortably in chair. Review of Systems Review of Systems: CONST: Negative for fever, body aches and chills. HENT: Negative for neck pain/stiffness, headache, congestion, sore throat, swelling. EYES: Negative for discharge/pain or vision changes. RESP: Negative for cough/hemoptysis and shortness of breath. CV: Negative chest pain, difficulty breathing, palpitations. ABD: Negative pain, nausea, vomiting. : Negative increase frequency, dysuria, blood in urine or stool. MUSC: Negative for muscle aches, edema. SKIN: Negative rash, lesions/sores. NEURO: Negative headache, dizziness, weakness. Physical Exam Physical Exam: GENERAL APPEARANCE NAD, activity normal for age, well developed/ well nourished, no cyanosis, pallor, or diaphoresis. EYES lids/conjunctiva normal. EARS/NOSE/THROAT Mucous membranes moist, nares normal, lips/teeth normal uvula midline without oral pharyngeal erythema, exudate or swelling TMs normal bilaterally. No lymphangitis/lymphedema. HEAD/NECK normocephalic atraumatic, no facial trauma, neck is supple. RESPIRATORY respiratory effort normal, speaks in full sentences, no tripod position, no accessory muscle use. Lungs clear to auscultation without rhonchi, wheezes, rales CARDIAC Regular rate and rhythm, no edema. ABDOMINAL Soft, ND/NT. No evidence of fluid wave. No pulsatile masses on exam, rebound tenderness, Harper sign or pain over Mcburney's point. MUSCLES/EXTREMITIES No abnormal range of motion, no swelling. SKIN Warm, pink and dry. No rashes, dermatoses, petechiae or lesions. NEUROLOGICAL Speech is clear and appropriate. Normal level of consciousness. Gait and coordination are normal. 5/5 strength in all extremities. PSYCH Normal mood and affect. Judgement/competence is appropriate Results & Data Results & Data Vital Signs (Past 12 Hours) Vital Signs Temp Pulse Pulse Resp BP Pulse Ox O2 Del Method 04/26/24 09:33 Nasal Cannula 04/26/24 08:15 36.6 C 75 14 142/80 H 98 Nasal Cannula 04/26/24 07:46 110 H 19 92 Room Air O2 Flow Rate 04/26/24 09:33 2 04/26/24 08:15 2 04/26/24 07:46 PG Care Time/CCT Total # of Minutes Spent Total Time Spent with Patient: Total time spent is greater than 50% in coordination of care (as documented) at patient's floor/unit and/or counseling patient: Coding Level of Care Code 86297 SUB INP/OBS CARE 2/35MIN Diagnoses Multilobar lung infiltrate R91.8 VIKAS (acute kidney injury) N17.9 Hypoxemia requiring supplemental oxygen R09.02; Z99.81 Leukocytosis D72.829 Thyroid mass E07.9
[2024-04-26 12:45] VITALS: TEMP 99.3
[2024-04-26 12:46] VITALS: O2SAT 90
--- NOTE | 2024-04-26 12:46 | Discharge Summary ---
Discharge Summary Date of Service April 26, 2024 Principal Dx & Hospital Course #1 = Principal Diagnosis (1) Multilobar lung infiltrate: - continue ceftriaxone + doxycycline c/w CAP treatment - Duonebs QID routine and q2 prn dyspnea/wheezing - Mucinex 600mg BID (2) VIKAS (acute kidney injury): Acute, baseline creatinine 1.1-1.3 (3) Hypoxemia requiring supplemental oxygen: Acute, secondary to multifocal PNA - Continue supplemental O2 as noted above and titrate to maintain sat >92% - Currently requiring 2L (4) Leukocytosis: Acute, secondary to multifocal PNA -resolved (5) Thyroid mass: CT chest and Us show an 8cm mass in the thyroid TSH, T3, T4 all wnl, patient is euthyroid will follow up with PCP outpatient Plan Stable chronic medical problems: 1. DMT2 - diet controlled, last a1c checked earlier this month and WNL at 6.5%, no need for insulin coverage 2. HTN - controlled, continue amlodipine, toprol xl, and HOLD candesartan in setting of VIKAS 3. Depression/anxiety - chronic, continue mirtazapine and buspirone 4. GERD - chronic, continue protonix 5. CAD - continue asa, imdur 6. HLD - chronic, continue atorvastatin, but would consider d/c'ing given advanced age-defer to pcp. 7. Dementia - chronic, continue seroquel, consider changing dosing to 25mg BID to decrease pill burden and frequency of medicine technologist plan is to d/c to [facility] pending auth Admission HPI Per Admitting Provider Briseyda Rincon) is an 83 yo F with a pmhx of dementia, DM, HTN, CAD, HLD, GERD, depression, and anxiety who presents to the ER this AM from [facility] where she resides after being found down in her room. It was uncertain if she sustained a fall as the event was unwitnessed. Due to her dementia she is a poor historian and is not able to provide any history. The RN newspaper carriers supervisor at [facility] at [facility] notes that she was worked up for PNA with a CXR, of which the results were received this AM c/w RUL PNA and their on-call providered ordered doxycycline 100mg BID x 10 days early this AM but the pt did not receive any doses. When she was found on the floor, she was noted to be tremulous, she was unable to stand and ambulate well. On the left side of her neck there was a not able "bump" according to nursing staff. Her w/u in the ER reportedly was that she had a pulse ox of 81% on room air with tachypnea. Her HR and BP are stable. She has a leukocytosis with neutrophilic predominance and a markedly elevated PCT of 13 and a lactate of 2.8. She has VIKAS with a creatinine of 1.94 and BUN of 50, with a baseline creatinine of 1.1 to 1.3. Respiratory biofire was negative. She was medicated with a dose of IV ceftriaxone and vancomycin. She is currently requiring 2L of supplemental O2 via nasal cannula with sats in the mid 90s. She is pleasant and cooperative. She has been referred to hospital medicine team for admission for further care. Discharge Exam GENERAL APPEARANCE NAD, activity normal for age, well developed/ well nourished, no cyanosis, pallor, or diaphoresis. EYES lids/conjunctiva normal. EARS/NOSE/THROAT Mucous membranes moist, nares normal, lips/teeth normal uvula midline without oral pharyngeal erythema, exudate or swelling TMs normal bilaterally. No lymphangitis/lymphedema. HEAD/NECK normocephalic atraumatic, no facial trauma, neck is supple. RESPIRATORY respiratory effort normal, speaks in full sentences, no tripod position, no accessory muscle use. Lungs clear to auscultation without rhonchi, wheezes, rales CARDIAC Regular rate and rhythm, no edema. ABDOMINAL Soft, ND/NT. No evidence of fluid wave. No pulsatile masses on exam, rebound tenderness, Harper sign or pain over Mcburney's point. MUSCLES/EXTREMITIES No abnormal range of motion, no swelling. SKIN Warm, pink and dry. No rashes, dermatoses, petechiae or lesions. NEUROLOGICAL Speech is clear and appropriate. Normal level of consciousness. Gait and coordination are normal. 5/5 strength in all extremities. PSYCH Normal mood and affect. Judgement/competence is appropriate Discharge Plan Discharge Items Patient Disposition: Transfer Residential Fac Reason For Visit: MULTILOBAR PNA, VIKAS Discharge Diagnosis: multilobar PNA Activity: Resume your previous activity Non-emergency contact: Primary Care Provider Call non-emergency contact if: you have any medication questions Follow-up/Referrals: Twyla Alfaro [Primary Care Provider] - Diet: Regular Addtl Attending Provider Instructions: follow up with PMD in 2 weeks Pending Studies at Discharge: No Stand-Alone Forms: My [facility] Skilled Items Patient informed of condition?: Yes DNR: No Discharge Level of Care: Acute rehab Communicable Disease: No Discharge Prognosis: Stable Lines: None Urinary Catheter: No Medications and DC Order Prescriptions: New guaifenesin [Mucinex] 600 mg Tablet Extended Release 12hr 600 mg PO Q12 Qty: 20 0RF cefdinir 300 mg capsule 300 mg PO BID 5 Days Qty: 10 0RF Continued nitroglycerin [Nitrostat] 0.4 mg tablet, sublingual 0.4 mg Sublingual DIRECTED PRN (Reason: Chest Pain) Qty: 25 3RF Rx Instructions: PLACE ONE TABLET UNDER THE TONGUE EVERY 5 MINUTES FOR UP TO 3 DOSES OVER 15 MINUTES IF NEEDED FOR CHEST PAIN tolterodine 2 mg tablet 2 mg PO BID Qty: 180 1RF isosorbide mononitrate 30 mg tablet extended release 24 hr 30 mg PO QAM aspirin 81 mg Tablet,Delayed Release (Dr/Ec) 81 mg PO QAM cholecalciferol (vitamin D3) [Vitamin D3] 2,000 unit Tablet 2,000 unit PO QAM montelukast 10 mg Tablet 10 mg PO QAM pantoprazole 40 mg tablet,delayed release (DR/EC) 40 mg PO Q OTHER DAY Patient Comments: takes in the am mirtazapine 30 mg Tablet 30 mg PO HS atorvastatin 20 mg tablet 20 mg PO QPM lidocaine 4 % Adhesive Patch,Medicated 1 patch TOPICAL BID Rx Instructions: Apply in the morning remove at HS polyethylene glycol 3350 [Miralax] 17 gram Powder In Packet 17 g PO QAM metoprolol succinate 50 mg tablet extended release 24 hr 50 mg PO QPM Rx Instructions: Hold for SBP<90 or HR<60 metoprolol succinate 100 mg tablet extended release 24 hr 100 mg PO QAM Rx Instructions: Hold for SBP<90 or HR<60 gabapentin 400 mg capsule 400 mg PO TID amlodipine 2.5 mg tablet 2.5 mg PO QAM Rx Instructions: Take 2.5mg w/ 5mg by mouth every morning to equal 7.5mg amlodipine 5 mg tablet 5 mg PO QAM Rx Instructions: Take 5mg w/ 2.5mg by mouth every morning to equal 7.5mg magnesium hydroxide [Milk of Magnesia] 400 mg/5 mL Suspension 2,400 mg PO Q48H PRN (Reason: Constipation) Rx Instructions: Give if no BM for 2 days bisacodyl [Dulcolax (bisacodyl)] 10 mg Suppository 10 mg [place] Q48H PRN (Reason: Constipation) Rx Instructions: Give if no results from Milk of Mag buspirone 10 mg tablet 10 mg PO TID candesartan 8 mg tablet 8 mg PO QAM melatonin 1 mg Tablet 2 mg PO QPM [place] Saline Gel [place],Non-Aerosol 1 spray INTRANASAL BID PRN (Reason: Nasal Dryness) quetiapine 25 mg tablet 12.5 mg PO QID cyanocobalamin (vitamin B-12) [Vitamin B-12] 1,000 mcg Tablet 1,000 mcg PO DAILY acetaminophen 500 mg Tablet 1,000 mg PO TID benzonatate 100 mg Capsule 100 mg PO TID PRN (Reason: Cough) mirtazapine 15 mg tablet 15 mg PO DAILY nystatin 100,000 unit/gram powder 1 applic TOPICAL BID PRN (Reason: Rash/Redness) Rx Instructions: Breast and skin folds oxycodone 5 mg tablet 2.5 mg PO DAILY oxycodone 5 mg tablet 2.5 mg PO Q4H PRN (Reason: Pain) Preparation H Rapid Rlf-Lidocn 5-0.25-14.4-15 % Cream 1 applic TOPICAL QID PRN (Reason: Hemorrhoid pain) doxycycline hyclate 100 mg Capsule 100 mg PO BID Qty: 14 0RF Rx Instructions: Start Date 04/21/24 - End Date 05/01/24 Discharge Orders: Discharge Order (Routine); Ordered 04/26/24 Ordered By: Moy Lopes Admission Data Admit Date/Time: 04/21/24 10:33 Attending Provider: Moy Lopes Admit Provider: Trav Rod Primary Care Provider: Julius Alfaromagdy [facility] Stay Data Diagnostic Imagining Performed 04/21/24 05:55 CT head/brain wo con Stat 04/21/24 05:56 CT cervical spine wo con Stat 04/21/24 07:15 CT abd pelvis wo con Stat CT chest diagnostic wo con Stat 04/23/24 16:42 US thyroid Routine Pending Results Patient Have Any Pending Studies at Discharge: No Discharge Instructions Given to Patient (Per Discharging Provider) follow up with PMD in 2 weeks Total Time Total Time Spent Total Time Spent (In Minutes): 50 Coding Level of Care Code 46487 INP/OBS DISCH >30 MIN Diagnoses Multilobar lung infiltrate R91.8 VIKAS (acute kidney injury) N17.9 Hypoxemia requiring supplemental oxygen R09.02; Z99.81 Leukocytosis D72.829 Thyroid mass E07.9
[2024-04-26 12:53] VITALS: BP 128/75; PULSE 110
== END 2024-04-26 15:02 | DRG 193 ==
LOC: ED 05:45 → SUATTDRO 10:33 → EDINP 10:33 → 3E 15:49

== ENCOUNTER 2024-09-21 08:32 | Observation (INO) ==
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
[2024-09-21 08:57] LABS: Hematocrit (blood only) 39.8 % (37.0-47.0); Hemoglobin 12.9 g/dl (12.0-16.0); Immature Granulocytes # (auto) 0.03 K/uL (0.01-0.20); Immature Granulocytes % (auto) 0.4 %; Mean Corpuscular Hemoglobin 28.4 pg (25.0-34.0); Mean Corpuscular Volume 87.7 fL (80.0-100.0); Platelet Count 283 K/uL (130-400); RDW Standard Deviation 42.9 fL (36.4-46.3); Red Blood Count 4.54 M/uL (4.20-5.40); White Blood Count 8.27 K/ul (4.8-10.8)
--- NOTE | 2024-09-21 09:10 | CT Scan Report ---
CT SCAN OF THE BRAIN WITHOUT IV CONTRAST CLINICAL HISTORY: Fall. COMPARISON STUDY: MRI of the brain April 08, 2017. Head CT April 21, 2024. TECHNIQUE: Unenhanced axial CT scan of the brain was performed from the vertex to the skull base. A dose lowering technique was utilized adhering to the principles of ALARA. CT DOSE: 1222.66 mGy.cm FINDINGS: No acute intracranial hemorrhage, midline shift or mass effect is present. Several hyperden se extra-axial lesions consistent with meningiomas remain unchanged. The largest is a 2.4 cm posterio r parafalcine meningioma on image 78 of 144. Ventricular system is stable. The basal cisterns are pat ent. There are no extra-axial collections. There are no findings to suggest acute dural sinus thrombo sis or acute territorial infarct. White matter hypodensities are similar to prior exam and favor smal l vessel disease. There are no calvarial fractures. IMPRESSION: 1. No acute intracranial findings. 2. No calvarial fractures. 3. No significant change in several meningiomas. ACT 112: Negative or not required by law. Electronically signed by: Jermain Wiggins M.D. 09/21/2024 9:09 AM
--- NOTE | 2024-09-21 09:13 | XRay Report ---
XR chest 1V portable CLINICAL HISTORY: Altered mental status. COMPARISON STUDY: Chest CT and chest radiograph April 21, 2024. FINDINGS: There is no pneumothorax or pleural effusion. Cardiomediastinal silhouette is stable. Left upper mediastinal widening with rightward displacement of the trachea is unchanged and due to a thyro id goiter shown on CT. Cardiomegaly is unchanged. Airspace opacities shown on prior exam have resolve d. There is no evidence for pulmonary edema. IMPRESSION: No acute cardiopulmonary findings. ACT 112: Negative or not required by law. Electronically signed by: Jermain Wiggins M.D. 09/21/2024 9:11 AM
--- NOTE | 2024-09-21 09:14 | CT Scan Report ---
CT SCAN OF THE CERVICAL SPINE CLINICAL HISTORY: Fall. COMPARISON STUDY: Cervical spine CT dated 04/21/2024 TECHNIQUE: CT scan of the cervical spine is performed from the skull base to the upper thoracic spine . Images are reviewed in the axial, sagittal, and coronal planes. IV contrast was not administered fo r this examination. A dose lowering technique was utilized adhering to the principles of ALARA. FINDINGS: Skeletal structures: The skeletal structures are osteopenic. There is no evidence of fracture or subl uxation involving the cervical spine. Vertebral body height and alignment are maintained. There is s traightening of the cervical lordosis. Anterior osteophytes are seen throughout. The odontoid process and lateral masses are intact. The atlantoaxial articulation is preserved noting productive degenera tive change. The spinous processes appear intact. Intervertebral discs: There is severe disc space narrowing with endplate sclerosis seen at C4-C5. Mod erate to severe narrowing is seen at C5-C6 and C6-C7, with moderate narrowing is noted at C3-C4. Central canal: Posterior disc osteophyte complexes are seen at all cervical levels between C3-C4 and C6-C7. This likely contributes to multilevel acquired compromise of the central canal. Soft tissues: The prevertebral and paraspinous soft tissues are within normal limits. There is athero sclerotic calcification of the carotid bulbs. The left thyroid lobe is markedly enlarged and heteroge neous, typical for goiter. The right lobe is diminutive versus surgically absent. Calvarium: The visualized calvarium at the skull base appears intact. Brain parenchyma: Partially visualized brain parenchyma at the skull base is within normal limits. Sinuses and mastoids: The visualized paranasal sinuses are clear. The mastoid air cells are well pneu matized. Cerumen is noted in the left external auditory canal. Lung apices: Clear as visualized. IMPRESSION: 1. There is no evidence of fracture or subluxation involving the cervical spine. 2. Osteopenia and spondylotic change as above. 3. Left lobe thyroid goiter. ACT 112: Negative or not required by law. Electronically signed by: Gary More M.D. 09/21/2024 9:13 AM
[2024-09-21 09:15] LABS: Alanine Aminotransferase 12 U/L (7-52); Albumin Globulin Ratio 1.4 (0.9-2); Alkaline Phosphatase 64 U/L (34-104); Anion Gap 8 (3-11); Bilirubin,Total 0.4 mg/dl (0.2-1.0); Blood Urea Nitrogen 26 mg/dl (6-23); Calcium 9.2 mg/dl (8.6-10.3); Carbon Dioxide 28 mmol/L (21-32); Chloride 104 mmol/L (98-107); Globulin 3.0 gm/dl (2.5-4.0); Glucose 128 mg/dl (70-99(Fasting)); Lipase 21 U/L (11-82); Potassium 4.6 mmol/L (3.5-5.1); Sodium 140 mmol/L (136-145); Total Protein 7.2 gm/dl (6.0-8.3)
[2024-09-21 09:24] LABS: INR 1.0 (0.9-1.1); Prothrombin Time 10.4 Seconds (9.0-12.0)
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
[2024-09-21 10:34] LABS: Appearance Urine Clear (Clear); Bacteria Urine Automated None Seen (None Seen); Cast Urine Automated 0-2 /lpf (0-2); Epithelial Cell Urine Auto 0-2 /hpf (0-2); Glucose Urine UA Negative (Negative); RBC Urine Automated 0-2 /hpf (0-2); WBC Urine Automated 0-5 /hpf (0-5)
[2024-09-21 11:15] LABS: Thyroid Stimulating Hormone 4.276 uIu/ml (0.300-4.500)
[2024-09-21] MEDS: ACETAMINOPHEN 500 MG TAB PO SCH (15:25)
--- NOTE | 2024-09-21 18:40 | Electrocardiogram Report ---
Test Reason : Blood Pressure : */* mmHG Vent. Rate : 81 BPM Atrial Rate : 81 BPM P-R Int : 160 ms QRS Dur : 84 ms QT Int : 368 ms P-R-T Axes : 20 -37 49 degrees QTcB Int : 427 ms Normal sinus rhythm Left axis deviation Abnormal ECG When compared with ECG of 21-Apr-2024 05:53, No significant change was found Confirmed by Ranjan Le [id number] on 09/21/2024 6:39:35 PM Referred By: Confirmed By: Ranjan Le
[2024-09-21] MEDS: MELATONIN 3 MG TAB PO SCH (20:30)
[2024-09-21] MEDS: MIRTAZAPINE TAB 15 MG TAB PO SCH (20:30)
[2024-09-21] MEDS ORDERED: levETIRAcetam 500 MG TAB PO SCH (21:00)
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
[2024-09-22] MEDS ORDERED: ATROPINE SULFATE 1% OP SOLN 5 ML BTL SL PRN (11:27)
[2024-09-22] MEDS ORDERED: MoRPHine SULFATE 10 MG/0.5 ML UDP PO PRN (11:27)
[2024-09-22] MEDS ORDERED: GLYCOPYRROLATE 0.2 MG/ML VIAL IV PRN (11:27)
[2024-09-22] MEDS ORDERED: ACETAMINOPHEN 325 MG TAB PO PRN (11:27)
[2024-09-22] MEDS ORDERED: HALOPERIDOL ORAL SOLN 2 MG/ML PO PRN (11:27)
[2024-09-22] MEDS ORDERED: ONDANSETRON 4 MG OD TAB SL PRN (11:27)
[2024-09-22] MEDS ORDERED: HYOSCYAMINE SULFATE 0.125 MG TAB SL PRN (11:27)
--- NOTE | 2024-09-22 11:53 | Hospitalist Progress Note ---
Date of Service September 22, 2024 Assessment & Plan (1) Seizure: Plan: Apparently new onset at the correction. No activity here. IV Keppra switched to oral dosing. No further studies warranted due to BUSINESS ADMINISTRATION PROGRAM CHAIR status and family wishes. (2) Decreased responsiveness: Plan: On admission. The patient is now awake and alert but severely demented. Continue supportive care. (3) Hypertension: Plan: All medications have been discontinued. BUSINESS ADMINISTRATION PROGRAM CHAIR Plan Anticipate return to [facility] tomorrow, September 22. BUSINESS ADMINISTRATION PROGRAM CHAIR status. Family will pursue hospice care at that facility. Admission and Anticipated Discharge Date Admission Date: September 21, 2024 Subjective Awake but severely demented. No seizure activity since admission. She is on IV Keppra which will be switched to oral dosing. Palliative care consultation noted. Palliative care has spoken to many family members and friends and the patient expressed wishes previously to be BUSINESS ADMINISTRATION PROGRAM CHAIR. She will be moved off of the telemetry floor. IV Keppra switched to oral dosing. Only her behavior related medications will be continued. Bautista catheter was inserted for hygiene purposes. She probably will return to [facility] tomorrow, September 23 Review of Systems 2 Review of Systems: The patient is severely demented and unable to answer any questions regarding review of symptoms Physical Exam 2 Physical Exam: General-alert but chronically disoriented due to severe underlying dementia. No fever HEENT-head atraumatic and normocephalic, pupils equal and reactive to light, extraocular muscles intact Neck-no lymphadenopathy or thyromegaly, trachea midline Chest-clear to auscultation. No rales, wheezing or rhonchi Cardiac-regular rate and rhythm, normal S1 and S2 Abdomen-normal bowel sounds, no hepatosplenomegaly Extremities-no cyanosis, clubbing, or edema Neuro-the patient is awake and moving all extremities randomly. She tends to look to the right but is moving left arm and left leg randomly. No evidence of acute CVA. Psych-severely demented. Cannot assess Results & Data Results & Data Vital Signs (Past 12 Hours) Vital Signs Temp Pulse Pulse Resp BP Pulse Ox O2 Del Method 09/22/24 11:24 36.9 C 88 18 121/65 90 Room Air 09/22/24 09:13 89 09/22/24 09:13 Room Air 09/22/24 08:12 36.4 C L 122 H 20 120/87 91 Room Air 09/22/24 04:00 37.2 C 94 H 19 154/75 H 96 Room Air 09/22/24 00:32 86 09/22/24 00:00 37.1 C 82 19 154/82 H 93 Room Air Laboratory Results 09/21/24 08:41 09/21/24 08:41 PG Care Time/CCT Total # of Minutes Spent Total Time Spent with Patient: Total time spent is greater than 50% in coordination of care (as documented) at patient's floor/unit and/or counseling patient: Coding Level of Care Code 52562 SUB INP/OBS CARE 3/50MIN Diagnoses Seizure R56.9 Decreased responsiveness R41.89 Hypertension I10
[2024-09-22 16:35] VITALS: BP 165/73; PULSE 89; RESP 16; TEMP 98.2; O2SAT 99
[2024-09-22] MEDS: levETIRAcetam 500 MG TAB PO SCH (20:33)
[2024-09-22] MEDS: GABAPENTIN 400 MG CAP PO SCH (20:33)
[2024-09-22] MEDS: busPIRone 5 MG TAB PO SCH (20:34)
[2024-09-22] MEDS: levETIRAcetam 500 MG/5 ML VIAL **500mg IV ONE (22:08)
[2024-09-23] MEDS: levETIRAcetam 500 MG/5 ML VIAL **500mg IV SCH (08:27)
[2024-09-23] MEDS: NYSTATIN POWDER 15GM BTL EXT SCH (08:37)
--- NOTE | 2024-09-23 10:09 | Discharge Summary ---
Discharge Summary Date of Service September 23, 2024 Principal Dx & Hospital Course #1 = Principal Diagnosis (1) Seizure: Apparently new onset at the retirement. No activity here. IV Keppra has been switched to oral dosing. 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 (2) Decreased responsiveness: On admission. The patient not responsive at the time of my examination this morning, September 23. Continue supportive care. (3) Hypertension: All medications have been discontinued. PROCESS DEVELOPMENT TECHNICIAN Plan Return to [facility] today, September 23. 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 Family will pursue hospice care Admission HPI Per Admitting Provider Rain (Suzanne) Heber is an 84 year old female who presents to the ER from [facility] due to altered mental state. Unable to get any information from patient as after lorazepam and Keppra given in the ER she is currently unresponsive with GCS 6 ([id number]). Per report she had a partial fall around 1am and was found on the toilet. She was keeping her eyes closed, mumbling incoherently. While in the ER she had a seizure lasting for minutes after coming back from CT. She was given lorazepam and Keppra and currently now has decreased responsiveness with GCS 6. On discussion with her friend Tony Segovia who is listed as POA on [facility] paperwork we discussed Brain MRI, EEG and neurology consult which he is amenable to. However after speaking to him subsequently POLST paperwork was found for comfort care measures only. No hydration and artificial nutrition by tube, limited use of antibiotics with comfort as a goal. On discussion with Dr Doan (patient's PCP) the patient also had a seizure this morning lasting 3-4 minutes. Known meningioma. At baseline she has no short term memory but she walks around independently and can feed herself. Reportedly POA frequently asks for things no concurrent with POLST form such as evaluation of her thyroid mass down in [place]. Discharge Plan Discharge Items Patient Disposition: Transfer [facility] Reason For Visit: SEIZURE Discharge Diagnosis: Seizure disorder, unresponsive episode Condition on Discharge: Fair Activity: As commented below Activity Comment: As before Non-emergency contact: Primary Care Provider Call non-emergency contact if: your symptoms worsen Follow-up/Referrals: Twyla Alfaro [Primary Care Provider] - Diet: Regular Addtl Attending Provider Instructions: Family will pursue hospice care at [facility]. Continue Keppra 500 mg twice daily. Continue nystatin powder applications twice daily under the right breast until the yeast infection has resolved Pending Studies at Discharge: No Stand-Alone Forms: My [facility] Skilled Items Patient informed of condition?: Yes DNR: Yes Discharge Level of Care: Skilled Communicable Disease: No Discharge Prognosis: Stable Lines: None Urinary Catheter: Yes Medications and DC Order Prescriptions: New levetiracetam [Keppra] 500 mg Tablet 500 mg PO BID Qty: 30 0RF acetaminophen 325 mg Tablet 650 mg PO Q6H PRN (Reason: fever) Qty: 0 0RF morphine concentrate 100 mg/5 mL (20 mg/mL) Solution 5 mg PO Q3H PRNQty: 0 0RF Continued nystatin 100,000 unit/gram powder 1 applic TOPICAL BID PRN (Reason: Rash/Redness) Rx Instructions: Breast and skin folds Discontinued nitroglycerin [Nitrostat] 0.4 mg tablet, sublingual 0.4 mg Sublingual DIRECTED PRN (Reason: Chest Pain) Qty: 25 3RF Rx Instructions: PLACE ONE TABLET UNDER THE TONGUE EVERY 5 MINUTES FOR UP TO 3 DOSES OVER 15 MINUTES IF NEEDED FOR CHEST PAIN tolterodine 2 mg tablet 2 mg PO BID Qty: 180 1RF isosorbide mononitrate 30 mg tablet extended release 24 hr 30 mg PO QAM aspirin 81 mg Tablet,Delayed Release (Dr/Ec) 81 mg PO QAM cholecalciferol (vitamin D3) [Vitamin D3] 2,000 unit Tablet 2,000 unit PO QAM montelukast 10 mg Tablet 10 mg PO QAM pantoprazole 40 mg tablet,delayed release (DR/EC) 40 mg PO Q OTHER DAY Patient Comments: takes in the am mirtazapine 30 mg Tablet 30 mg PO HS acetaminophen [Tylenol Ex Str Rapid Release] 500 mg Tablet 1,000 mg PO TID PRN (Reason: Back Pain) guaifenesin [Mucinex] 600 mg tablet extended release 12hr 600 mg PO BID PRN (Reason: Cough) atorvastatin 20 mg tablet 20 mg PO QPM lidocaine 4 % Adhesive Patch,Medicated 1 patch TOPICAL BID Rx Instructions: Apply in the morning remove at HS polyethylene glycol 3350 [Miralax] 17 gram Powder In Packet 17 g PO QAM metoprolol succinate 50 mg tablet extended release 24 hr 50 mg PO QPM Rx Instructions: Hold for SBP<90 or HR<60 metoprolol succinate 100 mg tablet extended release 24 hr 100 mg PO QAM Rx Instructions: Hold for SBP<90 or HR<60 gabapentin 400 mg capsule 400 mg PO TID amlodipine 2.5 mg tablet 2.5 mg PO QAM Patient Comments: Take 2.5mg w/ 5mg by mouth every morning to equal 7.5mg - 09/21/24 amlodipine 5 mg tablet 5 mg PO QAM Patient Comments: Take 5mg w/ 2.5mg by mouth every morning to equal 7.5mg - 09/21/24 magnesium hydroxide [Milk of Magnesia] 400 mg/5 mL Suspension 2,400 mg PO Q48H PRN (Reason: Constipation) Rx Instructions: Give if no BM for 2 days bisacodyl [Dulcolax (bisacodyl)] 10 mg Suppository 10 mg MT Q48H PRN (Reason: Constipation) Rx Instructions: Give if no results from Milk of Mag buspirone 10 mg tablet 10 mg PO TID candesartan 8 mg tablet 8 mg PO QAM melatonin 1 mg Tablet 2 mg PO QPM quetiapine 25 mg tablet 12.5 mg PO QID Rx Instructions: Hold for sedation cyanocobalamin (vitamin B-12) [Vitamin B-12] 1,000 mcg Tablet 1,000 mcg PO DAILY benzonatate 100 mg Capsule 100 mg PO TID PRN (Reason: Cough) mirtazapine 15 mg tablet 15 mg PO DAILY oxycodone 5 mg tablet 2.5 mg PO DAILY oxycodone 5 mg tablet 2.5 mg PO Q4H PRN (Reason: Pain) Preparation H Rapid Rlf-Lidocn 5-0.25-14.4-15 % Cream 1 applic TOPICAL QID PRN (Reason: Hemorrhoid pain) Discharge Orders: Discharge Order (Routine); Ordered 09/23/24 Ordered By: Pa Benjamin Admission Data Admit Date/Time: 09/21/24 10:25 Attending Provider: Pa Benjamin Admit Provider: Trav Rod Primary Care Provider: Twyla Alfaro Other Providers: Trav Rod; [facility] Stay Data Consultations 09/21/24 09:57 ED Decision to Admit Stat 09/22/24 07:14 Consult Palliative Care Routine Diagnostic Imagining Performed 09/21/24 08:43 CT head/brain wo con Stat 09/21/24 08:46 CT cervical spine wo con Stat Pending Results Patient Have Any Pending Studies at Discharge: No Discharge Instructions Given to Patient (Per Discharging Provider) Family will pursue hospice care at [facility]. Continue Keppra 500 mg twice daily. Continue nystatin powder applications twice daily under the right breast until the yeast infection has resolved Total Time Total Time Spent Total Time Spent (In Minutes): 45 minutes Coding Level of Care Code 77168 INP/OBS DISCH >30 MIN Diagnoses Seizure R56.9 Decreased responsiveness R41.89 Hypertension I10
== END 2024-09-23 15:13 ==
LOC: ED 08:32 → EDINP 10:25 → SUATTDRO 10:25 → INTOOBSV 10:25 → 2E 10:50